=== PATIENT | female | born 1955 | race Two or more races ===

== ENCOUNTER 2016-08-14 14:51 | Inpatient (IN) | payer MEDICAID ==
[~2016-08-14] VITALS: Ht 162.6 cm; Wt 136.1 kg
[2016-08-14] MEDS ORDERED: SEROQUEL200 MG ORAL (15:04)
[2016-08-14 15:29] LABS: BASOPHILS % (AUTO) 0.9 % (0.0-2.0); EOSINOPHILS % (AUTO) 1.2 % (0.0-3.0); LYMPHOCYTES % (AUTO) 30.3 % (20.0-45.0); MEAN CORPUSCULAR HEMOGLOBIN 29.9 PG (27.0-31.0); MEAN CORPUSCULAR HGB CONC 32.1 G/DL (32.0-36.0); MEAN CORPUSCULAR VOLUME 93 FL (80-99); MEAN PLATELET VOLUME 8.1 FL (6.5-10.1); MONOCYTES % (AUTO) 8.6 % (1.0-10.0); PLATELET COUNT 231 K/UL (150-450); RED BLOOD COUNT 4.46 M/UL (4.20-5.40); RED CELL DISTRIBUTION WIDTH 13.6 % (11.6-14.8); WHITE BLOOD COUNT 7.9 K/UL (4.8-10.8)
[2016-08-14] MEDS ORDERED: Meclizine 25mg tab ORAL ONE (15:30)
[2016-08-14 15:39] LABS: ALANINE AMINOTRANSFERASE 17 U/L (3-33); ALBUMIN/GLOBULIN RATIO 1.1 (1.0-2.7); ANION GAP 18 (5-15); ASPARTATE AMINO TRANSFERASE 17 U/L (5-40); CALCIUM 9.6 mg/dL (8.6-10.2); CARBON DIOXIDE 23 mEQ/L (20-30); CHLORIDE 98 mEQ/L (98-107); CREATININE 0.6 mg/dL (0.5-0.9); GLOMERULAR FILTRATION RATE > 60 mL/min (>60); HEMOLYSIS 5; POTASSIUM 4.2 mEQ/L (3.4-4.9); SODIUM 139 mEQ/L (135-145); TROPONIN I < 0.30 ng/mL (<=0.30)
[2016-08-14 15:49] LABS: CKMB < 1.5 ng/mL (< 3.8)
--- NOTE | 2016-08-14 15:50 | Emergency Room Report ---
History of Present Illness General Chief Complaint: Dizziness Source: Patient, EMS Present Illness HPI 61-year-old female presents ED complaining of dizziness x1 day. States dizziness started this morning when she woke up. Feels room spinning sensation , worse with sudden head movement or change of position. She states she was seen at another hospital last week for the same complaint. Was told she had vertigo and was subsequently discharged on medication. Unknown what medication she was prescribed. Denies nausea or vomiting. Denies headache. Denies chest pain. However patient is complaining of shortness of breath, worse with walking and laying flat. Denies fevers chills. Denies cough. No other aggravating or relieving factors. Denies any other associated symptom Allergies: Coded Allergies: No Known Allergies (Unverified , 08/14/16) Patient History Past Medical History: DM Past Surgical History: none Pertinent Family History: none Social History: Denies: alcohol use, drug use, smoking Now: No Immunizations: UTD Reviewed Nursing Documentation: PMH: Agreed, PSxH: Agreed Nursing Documentation-PMH Past Medical History: No History, Except For Hx Diabetes: Yes Review of Systems All Other Systems: negative except mentioned in HPI Physical Exam Vital Signs Date Time Temp Pulse Resp B/P Pulse Ox O2 Delivery O2 Flow Rate FiO2 08/14/16 14:45 98.4 78 16 143/75 98 Room Air Sp02 EP Interpretation: reviewed, normal General Appearance: no apparent distress, alert, GCS 15, non-toxic, obese Head: normocephalic, atraumatic Eyes: bilateral eye PERRL, bilateral eye normal inspection ENT: hearing grossly normal, normal pharynx, no angioedema, normal voice Neck: full range of motion, supple/symm/no masses Respiratory: chest non-tender, lungs clear, normal breath sounds, speaking full sentences Cardiovascular #1: regular rate, rhythm, no edema Cardiovascular #2: 2+ carotid (R), 2+ carotid (L), 2+ radial (R), 2+ radial (L) , 2+ dorsalis pedis (R), 2+ dorsalis pedis (L) Gastrointestinal: normal bowel sounds, non tender, soft, non-distended, no guarding, no rebound Rectal: deferred Genitourinary: normal inspection, no CVA tenderness Musculoskeletal: back normal, gait/station normal, normal range of motion, non- tender Neurologic: alert, oriented x3, responsive, motor strength/tone normal, sensory intact, speech normal Psychiatric: judgement/insight normal, memory normal, mood/affect normal, no suicidal/homicidal ideation Reflexes: 3+ bicep (R), 3+ bicep (L), 3+ tricep (R), 3+ tricep (L), 3+ knee (R) , 3+ knee (L) Skin: normal color, no rash, warm/dry, well hydrated Lymphatic: no adenopathy Medical Decision Making Diagnostic Impression: Primary Impression: Dizziness Additional Impression: Dyspnea Qualified Codes: R06.09 - Other forms of dyspnea ER Course Hospital Course 61-year-old female presents ED complaining of shortness of breath, c/o dizziness Differential diagnoses include: TN/unstable angina, CHF, pneumonia, arrythmia, vertigo Clinical course Patient placed on stretcher. 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 After initial history and physical I ordered labs, EKG, chest x-ray, IVFs labs reviewed- no leukocytosis, hemoglobin/hematocrit stable, electrolytes ok, troponins negative, Chest x-ray- interstitial edema initially given Meclizine without improvement. Given IV Valium patient was seen at [facility] last week and had workup including CT head which was negative. Case discussed with Dr. Chung and he agreed to accept the patient to his service for further care and support I. I feel this is a highly complex case requiring extensive working including EKG/Rhythm strip, Xray/CT/US, Blood/urine lab work, repeat exams while in ED, and administration of strong opiates/narcotics for pain control, admission to hospital or close patient follow up. Diagnosis - dizziness, dyspnea admitted to telemetry in serious condition Labs Test 08/14/16 15:16 08/14/16 15:49 White Blood Count 7.9 K/UL (4.8-10.8) Red Blood Count 4.46 M/UL (4.20-5.40) Hemoglobin 13.3 G/DL (12.0-16.0) Hematocrit 41.5 % (37.0-47.0) Mean Corpuscular Volume 93 FL (80-99) Mean Corpuscular Hemoglobin 29.9 PG (27.0-31.0) Mean Corpuscular Hemoglobin Concent 32.1 G/DL (32.0-36.0) Red Cell Distribution Width 13.6 % (11.6-14.8) Platelet Count 231 K/UL (150-450) Mean Platelet Volume 8.1 FL (6.5-10.1) Neutrophils (%) (Auto) 59.0 % (45.0-75.0) Lymphocytes (%) (Auto) 30.3 % (20.0-45.0) Monocytes (%) (Auto) 8.6 % (1.0-10.0) Eosinophils (%) (Auto) 1.2 % (0.0-3.0) Basophils (%) (Auto) 0.9 % (0.0-2.0) Sodium Level 139 mEQ/L (135-145) Potassium Level 4.2 mEQ/L (3.4-4.9) Chloride Level 98 mEQ/L (98-107) Carbon Dioxide Level 23 mEQ/L (20-30) Anion Gap 18 (5-15) Blood Urea Nitrogen 20 mg/dL (7-23) Creatinine 0.6 mg/dL (0.5-0.9) Estimat Glomerular Filtration Rate > 60 mL/min (>60) Glucose Level 154 mg/dL (74-106) Calcium Level 9.6 mg/dL (8.6-10.2) Total Bilirubin 0.3 mg/dL (0.0-1.2) Aspartate Amino Transf (AST/SGOT) 17 U/L (5-40) Alanine Aminotransferase (ALT/SGPT) 17 U/L (3-33) Alkaline Phosphatase 73 U/L (35-104) Total Creatine Kinase 37 U/L (26-140) Creatine Kinase MB < 1.5 ng/mL (< 3.8) Creatine Kinase MB Relative Index Troponin I < 0.30 ng/mL (<=0.30) Pro-B-Type Natriuretic Peptide 44 pg/mL (0-125) Total Protein 8.0 g/dL (6.6-8.7) Albumin 4.2 g/dL (3.5-5.2) Globulin 3.8 g/dL Albumin/Globulin Ratio 1.1 (1.0-2.7) Urine Color Pale yellow Urine Appearance Clear Urine pH 8 (4.5-8.0) Urine Specific [place] 1.010 (1.005-1.035) Urine Protein Negative (NEGATIVE) Urine Glucose (UA) Negative (NEGATIVE) Urine Ketones Negative (NEGATIVE) Urine Occult Blood Negative (NEGATIVE) Urine Nitrite Negative (NEGATIVE) Urine Bilirubin Negative (NEGATIVE) Urine Urobilinogen Normal MG/DL (0.0-1.0) Urine Leukocyte Esterase Negative (NEGATIVE) EKG Diagnostic Results Rate: normal Rhythm: NSR ST Segments: no acute changes ASA given to the pt in ED: No Rhythm Strip Diag. Results EP Interpretation: yes Rhythm: NSR, no PVC's, no ectopy Chest X-Ray Diagnostic Results EP Interpretation: No Findings: no pneumothorax, no acute cardiopulmonary disease, other - interstitial edema Number of Views: 1 Last Vital Signs Date Time Temp Pulse Resp B/P Pulse Ox O2 Delivery O2 Flow Rate FiO2 08/14/16 14:45 98.4 78 16 143/75 98 Room Air Status: improved Disposition: ADMITTED INPATIENT Condition: Serious Referrals: NOT CHOSEN LEONORA/,REFERRING (PCP) CALE WILLAMS M.D. Aug 14, 2016 15:50
[2016-08-14 16:08] LABS: APPEARANCE,URINE CLEAR; KETONES,URINE NEGATIVE (NEGATIVE); LEUKOCYTE ESTERASE ,URINE NEGATIVE (NEGATIVE); NITRITE,URINE NEGATIVE (NEGATIVE); PH,URINE 8 (4.5-8.0); PROTEIN,URINE NEGATIVE (NEGATIVE); UROBILINOGEN,URINE NORMAL MG/DL (0.0-1.0)
[2016-08-14 16:21] VITALS: BP 161/95
--- NOTE | 2016-08-14 16:28 | Diagnostic Imaging Report ---
Indication: Chest Pain Comparison: None A single view chest radiograph was obtained. Findings: The heart is enlarged. Interstitial markings are prominent as is pulmonary vascularity. Bones are unremarkable. Impression: Suspected interstitial edema.
[2016-08-14] MEDS ORDERED: Diazepam 10mg/2ml Inj IV ONE (16:45)
[2016-08-14] MEDS ORDERED: Mylanta II UD 30ml ORAL PRN (17:30)
[2016-08-14] MEDS ORDERED: Nitroglycerin Subl 0.4mg tab (Bottle Of 25) SL PRN (17:30)
[2016-08-14] MEDS ORDERED: LORazepam Inj 2mg/ml 1ml IV PRN (17:30)
[2016-08-14] MEDS ORDERED: Miralax 17gm pkt ORAL PRN (17:30)
[2016-08-14] MEDS ORDERED: DuoNeb 0.5-3(2.5)mg/3ml neb HHN PRN (17:30)
[2016-08-14 19:19] VITALS: BP 163/65
[2016-08-14 20:14] VITALS: BP 148/92
[2016-08-14] MEDS ORDERED: GLIMEPIRIDE4 MG ORAL (20:56)
[2016-08-14] MEDS ORDERED: ACTOS45 MG ORAL (20:56)
[2016-08-14] MEDS ORDERED: QUEtiapine 200mg tab ORAL SCH (21:00)
[2016-08-14] MEDS: Heparin 5000 units/ml inj SUBQ SCH (21:30)
[2016-08-14] MEDS: NovoLOG Insulin Flexpen SUBQ SCH (22:47)
[2016-08-15] VITALS (7 sets, daily range): BP systolic 114–160; BP diastolic 41–63
[2016-08-15] MEDS: Morphine Sulfate 2mg/ml Inj IVP PRN ×2 (01:55→06:02)
[2016-08-15] MEDS: NovoLOG Insulin Flexpen SUBQ SCH ×4 (06:05→20:19)
[2016-08-15] MEDS: Heparin 5000 units/ml inj SUBQ SCH ×2 (08:54→20:16)
--- NOTE | 2016-08-15 11:28 | History and Physical ---
History of Present Illness General Date patient seen: Aug 15, 2016 Time patient seen: 11:00 Reason for Hospitalization: Dizziness Present Illness HPI 61-year-old female with PMH of HTN,diabetes, arthritis , schizophrenia presented to ED complaining of dizziness x1 day. Dizziness started that morning when she woke up. [place] room spinning around her dizziness worse with sudden head movement or change of position. She stated that she was seen at another hospital last week for the same complaint. Was told she had vertigo and was subsequently discharged on medication. Unknown what medication she was prescribed. Denied nausea or vomiting. Denied headache. Denied chest pain. However complained of shortness of breath, worse with walking and laying flat. Denied fevers chills. Denied cough. Denied ringing in ears Denied change in hearing Denied recent infection in ED laboratory workup - no leukocytosis, hemoglobin/hematocrit stable, electrolytes stable, troponin negative, Chest x-ray- interstitial edema, cardiomegaly initially given Meclizine without improvement. subsequently was given IV Valium patient was seen at [facility] last week and had workup including CT head which was negative. patient was admitted for further management Allergies: Coded Allergies: No Known Allergies (Unverified , 08/14/16) Medication History Scheduled Glimepiride* (Glimepiride*), 4 MG ORAL DAILY, (Reported) Pioglitazone Hcl* (Actos*), 45 MG ORAL DAILY, (Reported) Quetiapine Fumarate* (Seroquel*), 200 MG ORAL QHS, (Reported) Patient History History Provided By: Patient, Medical Record Healthcare decision maker N Resuscitation status Full Code Advanced Directive on File No Review of Systems Constitutional: Reports: weakness Eye: Reports: no symptoms ENT: Reports: no symptoms Respiratory: Reports: see HPI Cardiovascular: Reports: other - hx of HTN Gastrointestinal: Reports: no symptoms Genitourinary: Reports: no symptoms Musculoskeletal: Reports: other - arthritis Psychiatric: Reports: other - schizophrenia Neurological: Reports: see HPI Endocrine: Reports: other - DM Hematologic/Lymphatic: Reports: no symptoms Physical Exam General Appearance: no apparent distress, alert, morbidly obese Lines, tubes and drains: peripheral HEENT: normocephalic, atraumatic, anicteric, mucous membranes moist Neck: supple Respiratory/Chest: lungs clear, no respiratory distress, no accessory muscle use Cardiovascular/Chest: normal rate - distant heart sounds , regular rhythm, other - tarce edema BLE Abdomen: normal bowel sounds, non tender, soft - obese Extremities: non-tender, normal capillary refill Neurologic: alert, responsive Musculoskeletal: normal muscle bulk Last 24 Hour Vital Signs Date Time Temp Pulse Resp B/P Pulse Ox O2 Delivery O2 Flow Rate FiO2 08/15/16 08:10 102 18 Nasal Cannula 2.0 08/15/16 07:45 97.1 85 18 118/52 98 Nasal Cannula 2.0 08/15/16 04:00 93 08/15/16 04:00 97.0 105 20 115/59 94 Nasal Cannula 2.0 08/15/16 00:00 81 08/15/16 00:00 97.5 82 20 118/47 93 Room Air 08/14/16 20:36 72 08/14/16 20:14 97.7 78 20 148/92 95 Room Air 08/14/16 19:23 98.4 89 20 163/65 99 Room Air 08/14/16 19:19 89 20 163/65 99 Room Air 08/14/16 16:21 75 20 161/95 100 Room Air 08/14/16 14:45 98.4 78 16 143/75 98 Room Air Intake and Output 08/14/16 08/15/16 19:00 07:00 Intake Total 1000 ml Output Total 150 ml Balance 1000 ml -150 ml Intake Oral 0 ml IV Total 1000 ml Output Urine Total 150 ml # Voids 2 # Bowel Movements 1 Laboratory Tests Test 08/14/16 15:16 08/14/16 15:49 White Blood Count 7.9 K/UL (4.8-10.8) Red Blood Count 4.46 M/UL (4.20-5.40) Hemoglobin 13.3 G/DL (12.0-16.0) Hematocrit 41.5 % (37.0-47.0) Mean Corpuscular Volume 93 FL (80-99) Mean Corpuscular Hemoglobin 29.9 PG (27.0-31.0) Mean Corpuscular Hemoglobin Concent 32.1 G/DL (32.0-36.0) Red Cell Distribution Width 13.6 % (11.6-14.8) Platelet Count 231 K/UL (150-450) Mean Platelet Volume 8.1 FL (6.5-10.1) Neutrophils (%) (Auto) 59.0 % (45.0-75.0) Lymphocytes (%) (Auto) 30.3 % (20.0-45.0) Monocytes (%) (Auto) 8.6 % (1.0-10.0) Eosinophils (%) (Auto) 1.2 % (0.0-3.0) Basophils (%) (Auto) 0.9 % (0.0-2.0) Sodium Level 139 mEQ/L (135-145) Potassium Level 4.2 mEQ/L (3.4-4.9) Chloride Level 98 mEQ/L (98-107) Carbon Dioxide Level 23 mEQ/L (20-30) Anion Gap 18 (5-15) H Blood Urea Nitrogen 20 mg/dL (7-23) Creatinine 0.6 mg/dL (0.5-0.9) Estimat Glomerular Filtration Rate > 60 mL/min (>60) Glucose Level 154 mg/dL (74-106) H Calcium Level 9.6 mg/dL (8.6-10.2) Total Bilirubin 0.3 mg/dL (0.0-1.2) Aspartate Amino Transf (AST/SGOT) 17 U/L (5-40) Alanine Aminotransferase (ALT/SGPT) 17 U/L (3-33) Alkaline Phosphatase 73 U/L (35-104) Total Creatine Kinase 37 U/L (26-140) Creatine Kinase MB < 1.5 ng/mL (< 3.8) Creatine Kinase MB Relative Index Troponin I < 0.30 ng/mL (<=0.30) Pro-B-Type Natriuretic Peptide 44 pg/mL (0-125) Total Protein 8.0 g/dL (6.6-8.7) Albumin 4.2 g/dL (3.5-5.2) Globulin 3.8 g/dL Albumin/Globulin Ratio 1.1 (1.0-2.7) Urine Color Pale yellow Urine Appearance Clear Urine pH 8 (4.5-8.0) Urine Specific [place] 1.010 (1.005-1.035) Urine Protein Negative (NEGATIVE) Urine Glucose (UA) Negative (NEGATIVE) Urine Ketones Negative (NEGATIVE) Urine Occult Blood Negative (NEGATIVE) Urine Nitrite Negative (NEGATIVE) Urine Bilirubin Negative (NEGATIVE) Urine Urobilinogen Normal MG/DL (0.0-1.0) Urine Leukocyte Esterase Negative (NEGATIVE) Height (Feet): 5 Height (Inches): 4.00 Weight (Pounds): 300 Medications Current Medications Medications (Trade) Dose Ordered Sig/Ceferino Route PRN Reason Start Time Stop Time Status Last Admin Dose Admin Acetaminophen (Tylenol) 650 mg Q4H PRN ORAL fever 08/14/16 17:30 09/13/16 17:29 08/14/16 21:29 Al Hydroxide/Mg Hydroxide (Mylanta II) 30 ml Q6H PRN ORAL dyspepsia 08/14/16 17:30 09/13/16 17:29 Albuterol/ Ipratropium (DuoNeb 0.5-3(2.5)mg/3ml) 3 ml Q4H PRN HHN Shortness of Breath 08/14/16 17:30 08/19/16 17:29 Clonidine HCl (Catapres) 0.1 mg Q4H PRN ORAL For High Blood Pressure 08/14/16 17:30 09/13/16 17:29 Dextrose (Dextrose 50%) STAT PRN IV Hypoglycemia 08/14/16 17:30 09/13/16 17:29 Heparin Sodium (Porcine) (Heparin 5000 units/ml) 5,000 units EVERY 12 HOURS SUBQ 08/14/16 21:00 09/13/16 20:59 08/15/16 08:54 Insulin Aspart (NovoLOG) BEFORE MEALS AND HS SUBQ 08/14/16 23:00 09/13/16 22:59 08/15/16 06:05 Lorazepam (Ativan 2mg/ml 1ml) 0.5 mg Q4H PRN IV For Anxiety 08/14/16 17:30 08/21/16 17:29 Morphine Sulfate (Morphine Sulfate) 1 mg Q4H PRN IVP For Pain 7-10 08/14/16 17:30 08/21/16 17:29 08/15/16 06:02 Nitroglycerin (Ntg) 0.4 mg Q5M X 3 DOSES PRN SL Prn Chest Pain 08/14/16 17:30 09/13/16 17:29 Ondansetron HCl (Zofran) 4 mg Q6H PRN IVP Nausea & Vomiting 08/14/16 17:30 09/13/16 17:29 08/15/16 08:48 Polyethylene Glycol (Miralax) 17 gm HSPRN PRN ORAL Constipation 08/14/16 17:30 09/13/16 17:29 Quetiapine Fumarate (SEROquel) 200 mg QHS ORAL 08/14/16 21:00 09/13/16 20:59 08/14/16 21:29 Temazepam (Restoril) 15 mg HSPRN PRN ORAL Insomnia 08/14/16 17:30 08/21/16 17:29 Assessment/Plan Assessment/Plan ASSESSMENT dizziness possible BPV vs labyrinthitis dyspnea HTN DM schizophrenia PLAN OF CARE tele to rule out acute causes of dizziness such as cardiac or neuro O2 HHN prn CXR with evidence of CM and mild interstitial edema Venous Duplex BLE troponin negative, no evidence of arrhythmia on tele ECHO cardio eval Carotid Duplex orthostatic VS neuro eval recent CT head in [facility] negative UA and CX negative for evidence of infection likely BPV, patient was unable to participate in Hallpike maneuver meclizine prn PT/OT DVT prophylaxis continue Seroquel may consider psych eval case discussed and evaluated by supervising physician Master Clifford)Chelsie NP Aug 15, 2016 11:28
[2016-08-15] MEDS ORDERED: Meclizine 25mg tab ORAL PRN (13:00)
--- NOTE | 2016-08-15 15:39 | Neurology Progress Note ---
Objective Physical Exam Last Vital Signs Date Time Temp Pulse Resp B/P Pulse Ox O2 Delivery O2 Flow Rate FiO2 08/15/16 15:19 97.5 74 18 114/41 97 Nasal Cannula 2.0 Laboratory Tests Test 08/14/16 15:49 Urine Color Pale yellow Urine Appearance Clear Urine pH 8 (4.5-8.0) Urine Specific [place] 1.010 (1.005-1.035) Urine Protein Negative (NEGATIVE) Urine Glucose (UA) Negative (NEGATIVE) Urine Ketones Negative (NEGATIVE) Urine Occult Blood Negative (NEGATIVE) Urine Nitrite Negative (NEGATIVE) Urine Bilirubin Negative (NEGATIVE) Urine Urobilinogen Normal MG/DL (0.0-1.0) Urine Leukocyte Esterase Negative (NEGATIVE) Impression/Recommendations Recommendations #[id number] VIDAL SNYDER Aug 15, 2016 15:39
[2016-08-15] MEDS: Meclizine 25mg tab ORAL SCH (20:17)
[2016-08-16] VITALS: BP 115/53
--- NOTE | 2016-08-16 01:15 | Consultation ---
DATE OF CONSULTATION: 08/15/2016 NEUROLOGICAL CONSULTATION: CONSULTING PHYSICIAN: Gerard Brown M.D. REQUESTING PHYSICIAN: Oanh Chung M.D. HISTORY OF PRESENT ILLNESS: This is a 61 years old female, seen in neurological consultation to evaluate the recent onset of positional vertigo. The patient informed me that about a month ago, she started to have intermittent episodes of vertigo, transient. She noticed that when she is in supine and moving head backwards, or at times after having meals. She has a recent hospitalization. No diagnosis was established. She was readmitted at this time for episodes of vertigo for full day. She reported that vertigo started since she woke up in the morning. She described having spinning sensation, worsened with sudden head movement or changing body position. She denies any associated symptomatology. Following current admission, vital signs remained stable. She was afebrile. Her diagnostic studies included laboratory work with normal CBC, chemistry panel normal except blood sugar 154, anion gap of 18, normal urinalysis, and her chest x-ray suspected interstitial edema. The patient's treatment on admission included quetiapine 200 mg at bedtime for severe insomnia. She is on Actos and glimepiride. PAST MEDICAL HISTORY: The patient has a history of morbid obesity, degenerative joint disease, and history of what appears sleep apnea, hypertension, and chronic psychiatric disorder. ALLERGIES: None reported. SOCIAL HISTORY: Denies alcohol or drug abuse. Nonsmoker. She is . REVIEW OF SYMPTOMS: Shortness of breath on exertion. Episodes of positional vertigo. Denies visual or hearing abnormalities. Heavy snoring at nighttime. Difficulty ambulation, using walker. PHYSICAL EXAMINATION: GENERAL: Morbidly obese female, not in acute distress, sitting in a chair. VITAL SIGNS: Her vital signs are now stable. She is afebrile with temperature 97.5 degrees and blood pressure 114/41. HEENT: Head, normocephalic. No evidence of trauma. Eyes, ears, and throat are clear. NECK: Supple. No meningeal signs. MUSCULOSKELETAL: Arthritic changes, painful both knees. Peripheral pulses 1+ and symmetric. PSYCHIATRIC: Mental status, the patient is alert and oriented x3. Her speech is fluent. Language is intact. Speaks predominantly Japanese. CRANIAL NERVES II: Pupils, both responding to light and accommodation. Extraocular movement intact. No nystagmus. CRANIAL NERVES V: Normal corneal responses. CRANIAL NERVES VII: No facial asymmetry. CRANIAL NERVES VIII: Normal hearing. CRANIAL NERVES IX THROUGH XII: Within normal limits. MOTOR EXAMINATION: Normal muscle tone. Strength is 5/5. Able to lift arms and legs against gravity. Deep tendon reflexes 1+ and symmetric with downgoing toes on both sides. Sensory exam, normal to pinprick and light touch. Gait, not tested but reported able to ambulate with the use of walker. Deep tendon reflexes unobtainable. Biceps, triceps, brachioradialis knee and ankle jerks, plantar responses flexor. SENSORY EXAMINATION: Withdrawing to pin stimulation, both upper and lower extremities. Gait not tested, but reported able to ambulate with the use of walker. IMPRESSION: 1. New onset of intermittent what appears to be positional vertigo with no associated symptomatology. 2. Morbid obesity. 3. Sleep apnea. 4. Degenerative joint disease. 5. Diabetes type 2. DISCUSSION: The patient has no identifiable neurological deficit, but her description follows the pattern of positional vertigo. CT scan of the brain was obtained only recently and was negative. Carotid Duplex pending. The patient will need a sleep apnea test, polysomnogram, also consider reducing Seroquel, down to 25 mg at bedtime, if necessary psychiatry assessment will be requested. The patient maintained on Antivert 25 mg t.i.d. in the following week or two. If symptoms persist, may need outpatient ENT assessment for electronystagmogram. Thank you for allowing me to see this interesting patient in neurological consultation. Gerard Brown M.D. DR: Shan JOB#: [id number] CC:
[2016-08-16] MEDS: Meclizine 25mg tab ORAL SCH ×4 (01:59→20:12)
[2016-08-16 04:00] VITALS: BP 147/63
[2016-08-16] MEDS: NovoLOG Insulin Flexpen SUBQ SCH ×4 (06:18→20:22)
[2016-08-16 07:38] VITALS: BP 131/55
[2016-08-16] MEDS: Heparin 5000 units/ml inj SUBQ SCH ×2 (08:10→20:22)
[2016-08-16] MEDS ORDERED: Bisacodyl EC 5mg tab ORAL ONE (09:45)
[2016-08-16 11:17] VITALS: BP 128/54
--- NOTE | 2016-08-16 11:38 | Pulmonology Progress Note ---
Assessment/Plan Assessment/Plan ASSESSMENT vertigo likely BPV vs labyrinthitis dyspnea HTN DM schizophrenia likely WILL depression bilateral calf pain PLAN OF CARE tele to rule out acute causes of dizziness such as cardiac or neuro O2 HHN prn CXR with evidence of CM and mild interstitial edema Venous Duplex BLE troponin negative, no evidence of arrhythmia on tele ECHO with preserved EF cardio eval Carotid Duplex repeat if agreed orthostatic VS no orthostatic Venous Duplex BLE stat neuro eval noted and appreciated vertigo likely positional as per neuro recommended Meclizine tid x 1-2 wks may need outpatient ENT assessment for electronystagmogram. recent CT head in [facility] negative UA and CX negative for evidence of infection likely BPV, patient was unable to participate in Hallpike maneuver meclizine prn PT/OT DVT prophylaxis continue Seroquel psych eval for evaluation of depression outpatient sleep study case discussed and evaluated by supervising physician Subjective Allergies: Coded Allergies: No Known Allergies (Unverified , 08/14/16) Subjective declined Carotid Duplex yesterday ( unable to finish) less dizziness, still some headache sitting in the chair c/o bilateral posterior calf pain, no SOB Objective Last 24 Hour Vital Signs Date Time Temp Pulse Resp B/P Pulse Ox O2 Delivery O2 Flow Rate FiO2 08/16/16 11:17 96.8 66 18 128/54 99 Nasal Cannula 2.0 08/16/16 07:45 63 08/16/16 07:38 97.0 64 18 131/55 99 Nasal Cannula 2.0 08/16/16 04:00 81 08/16/16 04:00 97.2 86 20 147/63 97 Nasal Cannula 2.0 08/16/16 00:00 73 08/16/16 00:00 96.8 75 20 115/53 97 Nasal Cannula 2.0 08/15/16 20:00 70 08/15/16 20:00 96.8 53 16 136/53 97 Nasal Cannula 2.0 08/15/16 19:07 98 18 Nasal Cannula 2.0 08/15/16 15:45 67 08/15/16 15:19 97.5 74 18 114/41 97 Nasal Cannula 2.0 08/15/16 15:00 87 08/15/16 14:55 67 08/15/16 14:50 72 08/15/16 13:28 83 125/48 08/15/16 12:03 69 6/3/17 11:58 160/63 08/15/16 11:53 08/15/16 11:52 08/15/16 11:31 96.8 84 18 160/63 99 Nasal Cannula 2.0 Intake and Output 08/15/16 08/16/16 19:00 07:00 Intake Total 720 ml 120 ml Output Total 260 ml Balance 460 ml 120 ml Intake Oral 720 ml 120 ml Output Urine Total 260 ml # Voids 101 2 Objective General Appearance: no apparent distress, alert, morbidly obese Lines, tubes and drains: peripheral HEENT: normocephalic, atraumatic, anicteric, mucous membranes moist Neck: supple Respiratory/Chest: lungs clear, no respiratory distress, no accessory muscle use Cardiovascular/Chest: normal rate, distant heart sounds , regular rhythm, trace edema BLE Abdomen: normal bowel sounds, non tender, soft , obese Extremities: non-tender, normal capillary refill Neurologic: alert, responsive Musculoskeletal: normal muscle bulk Current Medications Medications (Trade) Dose Ordered Sig/Ceferino Route PRN Reason Start Time Stop Time Status Last Admin Dose Admin Acetaminophen (Tylenol) 650 mg Q4H PRN ORAL fever 08/14/16 17:30 09/13/16 17:29 08/16/16 04:48 Al Hydroxide/Mg Hydroxide (Mylanta II) 30 ml Q6H PRN ORAL dyspepsia 08/14/16 17:30 09/13/16 17:29 Albuterol/ Ipratropium (DuoNeb 0.5-3(2.5)mg/3ml) 3 ml Q4H PRN HHN Shortness of Breath 08/14/16 17:30 08/19/16 17:29 Clonidine HCl (Catapres) 0.1 mg Q4H PRN ORAL For High Blood Pressure 08/14/16 17:30 09/13/16 17:29 08/15/16 11:58 Dextrose (Dextrose 50%) STAT PRN IV Hypoglycemia 08/14/16 17:30 09/13/16 17:29 Heparin Sodium (Porcine) (Heparin 5000 units/ml) 5,000 units EVERY 12 HOURS SUBQ 08/14/16 21:00 09/13/16 20:59 08/15/16 20:16 Insulin Aspart (NovoLOG) BEFORE MEALS AND HS SUBQ 08/14/16 23:00 7/2/17 22:59 08/16/16 06:18 Lorazepam (Ativan 2mg/ml 1ml) 0.5 mg Q4H PRN IV For Anxiety 08/14/16 17:30 08/21/16 17:29 Meclizine HCl (Antivert) 25 mg Q6H ORAL 08/15/16 20:00 09/14/16 19:59 08/16/16 08:08 Morphine Sulfate (Morphine Sulfate) 1 mg Q4H PRN IVP For Pain 7-10 08/14/16 17:30 08/21/16 17:29 08/15/16 06:02 Nitroglycerin (Ntg) 0.4 mg Q5M X 3 DOSES PRN SL Prn Chest Pain 08/14/16 17:30 09/13/16 17:29 Ondansetron HCl (Zofran) 4 mg Q6H PRN IVP Nausea & Vomiting 08/14/16 17:30 09/13/16 17:29 08/15/16 16:48 Polyethylene Glycol (Miralax) 17 gm HSPRN PRN ORAL Constipation 08/14/16 17:30 09/13/16 17:29 08/15/16 13:22 Quetiapine Fumarate (SEROquel) 100 mg QHS ORAL 08/15/16 21:00 09/14/16 20:59 08/15/16 20:17 Temazepam (Restoril) 15 mg HSPRN PRN ORAL Insomnia 08/14/16 17:30 08/21/16 17:29 Master ChambersChelsie cantu NP Aug 16, 2016 11:38
[2016-08-16 15:21] VITALS: BP 124/49
[2016-08-16 20:00] VITALS: BP 131/65
[2016-08-17] VITALS: BP_SYST 117; BP_SYST 169; BP_DIAS 30; BP_DIAS 45
[2016-08-17] MEDS: Meclizine 25mg tab ORAL SCH ×4 (01:56→20:12)
[2016-08-17 04:00] VITALS: BP 129/38
[2016-08-17] MEDS: NovoLOG Insulin Flexpen SUBQ SCH ×4 (05:53→20:45)
--- NOTE | 2016-08-17 07:06 | Cardiology Report ---
APPROVED REPORT EXAM: Two-dimensional and M-mode echocardiogram with Doppler and color Doppler. INDICATION Left Ventricular Function M-Mode DIMENSIONS IVSd1.7 (0.7-1.1cm)Left Atrium (MM)4.0 (1.6-4.0cm) LVDd5.1 (3.5-5.6cm)Aortic Root2.3 (2.0-3.7cm) PWd1.3 (0.7-1.1cm)Aortic Cusp Exc.1.5 (1.5-2.0cm) LVDs3.6 (2.5-4.0cm) PWs2.1 cm Technically difficult study due to poor acoustic windowsn and patient body habitus. Study quality precludes accurate assessment of regional wall motion. Normal left ventricular chamber size, systolic function and wall motion. Left ventricular ejection fraction estimated to be 55 %. Mild left ventricular hypertrophy. No evidence of pericardial fat or effusion. All other cardiac chamber sizes are within normal limits. Mild focal aortic valve sclerosis with adequate cusp excursion. Mildly thickened mitral valve leaflets with normal excursion. Mild mitral annulus and aortic root calcification. Pulmonic valve not well visualized. Normal tricuspid valve structure. IVC dilated at 1.9 cm with physiologic collapse. A color flow and spectral Doppler study was performed and revealed: No aortic regurgitation. Mild mitral regurgitation. Mitral diastolic velocities suggest reduced left ventricular relaxation (Grade I). Mild tricuspid regurgitation. Tricuspid systolic velocities suggests peak right ventricular systolic pressure of 17 mmHg No pulmonic regurgitation present.
[2016-08-17 08:00] VITALS: BP 144/65
[2016-08-17 08:05] LABS: BASOPHILS % (AUTO) 1.5 % (0.0-2.0); EOSINOPHILS % (AUTO) 2.5 % (0.0-3.0); LYMPHOCYTES % (AUTO) 30.7 % (20.0-45.0); MEAN CORPUSCULAR HEMOGLOBIN 31.5 PG (27.0-31.0); MEAN CORPUSCULAR VOLUME 96 FL (80-99); MEAN PLATELET VOLUME 8.3 FL (6.5-10.1); MONOCYTES % (AUTO) 9.9 % (1.0-10.0); NEUTROPHILS % (AUTO) 55.5 % (45.0-75.0); PLATELET COUNT 169 K/UL (150-450); RED BLOOD COUNT 3.88 M/UL (4.20-5.40); RED CELL DISTRIBUTION WIDTH 14.1 % (11.6-14.8); WHITE BLOOD COUNT 6.2 K/UL (4.8-10.8)
[2016-08-17 08:20] LABS: ANION GAP 14 (5-15); CALCIUM 9.3 mg/dL (8.6-10.2); CARBON DIOXIDE 24 mEQ/L (20-30); CHLORIDE 103 mEQ/L (98-107); CREATININE 0.6 mg/dL (0.5-0.9); GLOMERULAR FILTRATION RATE > 60 mL/min (>60); HEMOLYSIS 9; POTASSIUM 4.3 mEQ/L (3.4-4.9); SODIUM 141 mEQ/L (135-145)
[2016-08-17] MEDS: Heparin 5000 units/ml inj SUBQ SCH ×2 (09:13→20:47)
[2016-08-17 12:00] VITALS: BP 147/58
--- NOTE | 2016-08-17 12:40 | Pulmonology Progress Note ---
Assessment/Plan Problems: (1) Dizziness (2) Pulmonary edema (3) Dyspnea (4) Morbid obesity Assessment/Plan neuro evaluation pt/ot lasix ID evaluation. Pt claims she has parasites Subjective ROS Limited/Unobtainable: No Constitutional: Reports: no symptoms HEENT: Repors: no symptoms Respiratory: Reports: no symptoms Allergies: Coded Allergies: No Known Allergies (Unverified , 08/14/16) Objective Last 24 Hour Vital Signs Date Time Temp Pulse Resp B/P Pulse Ox O2 Delivery O2 Flow Rate FiO2 08/17/16 08:47 Nasal Cannula 2.0 28 08/17/16 08:47 98 Nasal Cannula 2.0 28 08/17/16 08:46 74 16 Nasal Cannula 2.0 28 08/17/16 08:00 77 08/17/16 08:00 97.0 74 18 144/65 99 Nasal Cannula 2.0 08/17/16 04:37 76 08/17/16 04:00 97.7 84 20 129/38 99 Nasal Cannula 2.0 08/17/16 04:00 84 97 08/17/16 00:41 74 08/17/16 00:00 97.6 86 20 117/45 99 Nasal Cannula 2.0 08/16/16 20:00 97.6 71 20 131/65 99 Nasal Cannula 2.0 08/16/16 19:57 72 08/16/16 19:10 99 Nasal Cannula 2.0 08/16/16 19:10 Nasal Cannula 2.0 28 08/16/16 19:05 98 16 Nasal Cannula 2.0 08/16/16 15:51 68 08/16/16 15:21 96.3 65 18 124/49 99 Nasal Cannula 2.0 08/16/16 13:12 92 16 Nasal Cannula 2.0 Intake and Output 08/16/16 08/17/16 19:00 07:00 Intake Total 810 ml Output Total 300 ml Balance 510 ml Intake Oral 810 ml Output Urine Total 300 ml # Voids 4 # Bowel Movements 1 General Appearance: WD/WN HEENT: normocephalic, atraumatic Respiratory/Chest: chest wall non-tender, lungs clear Cardiovascular: normal peripheral pulses, regular rhythm Abdomen: normal bowel sounds, soft, non tender Genitourinary: normal external genitalia Skin: no rash Laboratory Tests 08/17/16 07:30: White Blood Count 6.2, Red Blood Count 3.88L, Hemoglobin 12.2, Hematocrit 37.1, Mean Corpuscular Volume 96, Mean Corpuscular Hemoglobin 31.5H, Mean Corpuscular Hemoglobin Concent 33.0, Red Cell Distribution Width 14.1, Platelet Count 169, Mean Platelet Volume 8.3, Neutrophils (%) (Auto) 55.5, Lymphocytes (%) (Auto) 30.7, Monocytes (%) (Auto) 9.9, Eosinophils (%) (Auto) 2.5, Basophils (%) (Auto ) 1.5, Sodium Level 141, Potassium Level 4.3, Chloride Level 103, Carbon Dioxide Level 24, Anion Gap 14, Blood Urea Nitrogen 18, Creatinine 0.6, Estimat Glomerular Filtration Rate > 60, Glucose Level 129H, Calcium Level 9.3 Current Medications Medications (Trade) Dose Ordered Sig/Ceferino Route PRN Reason Start Time Stop Time Status Last Admin Dose Admin Acetaminophen (Tylenol) 650 mg Q4H PRN ORAL fever 08/14/16 17:30 09/13/16 17:29 08/16/16 15:57 Al Hydroxide/Mg Hydroxide (Mylanta II) 30 ml Q6H PRN ORAL dyspepsia 08/14/16 17:30 09/13/16 17:29 Albuterol/ Ipratropium (DuoNeb 0.5-3(2.5)mg/3ml) 3 ml Q4H PRN HHN Shortness of Breath 08/14/16 17:30 08/19/16 17:29 Clonidine HCl (Catapres) 0.1 mg Q4H PRN ORAL For High Blood Pressure 08/14/16 17:30 09/13/16 17:29 08/15/16 11:58 Dextrose (Dextrose 50%) STAT PRN IV Hypoglycemia 08/14/16 17:30 09/13/16 17:29 Heparin Sodium (Porcine) (Heparin 5000 units/ml) 5,000 units EVERY 12 HOURS SUBQ 08/14/16 21:00 09/13/16 20:59 08/17/16 09:13 Insulin Aspart (NovoLOG) BEFORE MEALS AND HS SUBQ 08/14/16 23:00 09/13/16 22:59 08/17/16 11:40 Lorazepam (Ativan 2mg/ml 1ml) 0.5 mg Q4H PRN IV For Anxiety 08/14/16 17:30 08/21/16 17:29 Meclizine HCl (Antivert) 25 mg Q6H ORAL 08/15/16 20:00 09/14/16 19:59 08/17/16 09:10 Morphine Sulfate (Morphine Sulfate) 1 mg Q4H PRN IVP For Pain 7-08/14/16 17:30 08/21/16 17:29 08/15/16 06:02 Nitroglycerin (Ntg) 0.4 mg Q5M X 3 DOSES PRN SL Prn Chest Pain 08/14/16 17:30 09/13/16 17:29 Ondansetron HCl (Zofran) 4 mg Q6H PRN IVP Nausea & Vomiting 08/14/16 17:30 09/13/16 17:29 08/16/16 15:56 Polyethylene Glycol (Miralax) 17 gm HSPRN PRN ORAL Constipation 08/14/16 17:30 09/13/16 17:29 08/15/16 13:22 Quetiapine Fumarate (SEROquel) 100 mg QHS ORAL 08/15/16 21:00 09/14/16 20:59 08/16/16 21:16 Temazepam (Restoril) 15 mg HSPRN PRN ORAL Insomnia 08/14/16 17:30 08/21/16 17:29 SANA CARROLL Aug 17, 2016 12:40
--- NOTE | 2016-08-17 14:09 | Diagnostic Imaging Report ---
APPROVED REPORT CPT Code: 09316 Present Symptoms Lower Extremity Pain: Bilateral Shortness of breath BILATERAL: Imaging reveals a patent deep venous system bilaterally. There is no evidence of thrombus within the femoral, popliteal or tibial segments. The greater saphenous veins are also within normal limits. Doppler indicates normal spontaneous flow within these segments.
[2016-08-17] MEDS ORDERED: Nitroglycerin Subl 0.4mg tab (Bottle Of 25) SL PRN (14:30)
[2016-08-17] MEDS ORDERED: Morphine Sulfate 2mg/ml Inj IVP PRN (15:00)
[2016-08-17] MEDS ORDERED: DuoNeb 0.5-3(2.5)mg/3ml neb HHN PRN (15:00)
[2016-08-17] MEDS ORDERED: LORazepam Inj 2mg/ml 1ml IV PRN (15:00)
[2016-08-17] MEDS ORDERED: Mylanta II UD 30ml ORAL PRN (15:00)
[2016-08-17 16:15] VITALS: BP 138/70
[2016-08-17 20:21] VITALS: BP 146/77
[2016-08-17] MEDS ORDERED: Miralax 17gm pkt ORAL PRN (21:00)
[2016-08-18 00:25] VITALS: BP 142/80
--- NOTE | 2016-08-18 00:31 | Consultation ---
History of Present Illness General Date patient seen: Aug 16, 2016 Chief Complaint: Dizziness Present Illness HPI 61 years old female, seen in neurological consultation to evaluate the recent onset of positional vertigo. the pt is pw depressed mood, anhedonia, hopelessness, decrease energy. the pt has been refusing Doppler. on Wednesday the pt agreed to procedure Allergies: Coded Allergies: No Known Allergies (Unverified , 08/14/16) Medication History Scheduled Glimepiride* (Glimepiride*), 4 MG ORAL DAILY, (Reported) Pioglitazone Hcl* (Actos*), 45 MG ORAL DAILY, (Reported) Quetiapine Fumarate* (Seroquel*), 200 MG ORAL QHS, (Reported) Patient History History Provided By: Patient, Friend, Significant Other, Medical Record Healthcare decision maker N Resuscitation status Full Code Advanced Directive on File No Past Medical/Surgical History Past Medical/Surgical History: (1) Dizziness (2) Morbid obesity (3) Dyspnea (4) Pulmonary edema Review of Systems Psychiatric: Reports: anxiety, depressed feelings, emotional problems, prior hx Physical Exam General Appearance: no apparent distress, alert, obese Neurologic: alert, oriented x 3, responsive, depressed affect Last 24 Hour Vital Signs Date Time Temp Pulse Resp B/P Pulse Ox O2 Delivery O2 Flow Rate FiO2 08/18/16 00:25 97.9 100 19 142/80 96 Nasal Cannula 6.0 08/17/16 23:43 68 20 Nasal Cannula 2.0 08/17/16 20:21 98.1 66 18 146/77 94 Nasal Cannula 6.0 08/17/16 19:30 70 20 Nasal Cannula 2.0 08/17/16 19:30 Nasal Cannula 2.0 28 08/17/16 19:30 98 Nasal Cannula 2.0 28 08/17/16 16:15 97.5 72 20 138/70 99 Nasal Cannula 2.0 08/17/16 12:00 80 08/17/16 12:00 97.5 62 20 147/58 100 Nasal Cannula 2.0 08/17/16 08:47 Nasal Cannula 2.0 28 08/17/16 08:47 98 Nasal Cannula 2.0 28 08/17/16 08:46 74 16 Nasal Cannula 2.0 28 08/17/16 08:00 77 08/17/16 08:00 97.0 74 18 144/65 99 Nasal Cannula 2.0 08/17/16 04:37 76 08/17/16 04:00 97.7 84 20 129/38 99 Nasal Cannula 2.0 08/17/16 04:00 84 97 08/17/16 00:41 74 Intake and Output 08/17/16 08/18/16 19:00 07:00 Intake Total 720 ml Balance 720 ml Intake Oral 720 ml # Voids 6 Laboratory Tests Test 08/17/16 07:30 White Blood Count 6.2 K/UL (4.8-10.8) Red Blood Count 3.88 M/UL (4.20-5.40) L Hemoglobin 12.2 G/DL (12.0-16.0) Hematocrit 37.1 % (37.0-47.0) Mean Corpuscular Volume 96 FL (80-99) Mean Corpuscular Hemoglobin 31.5 PG (27.0-31.0) H Mean Corpuscular Hemoglobin Concent 33.0 G/DL (32.0-36.0) Red Cell Distribution Width 14.1 % (11.6-14.8) Platelet Count 169 K/UL (150-450) Mean Platelet Volume 8.3 FL (6.5-10.1) Neutrophils (%) (Auto) 55.5 % (45.0-75.0) Lymphocytes (%) (Auto) 30.7 % (20.0-45.0) Monocytes (%) (Auto) 9.9 % (1.0-10.0) Eosinophils (%) (Auto) 2.5 % (0.0-3.0) Basophils (%) (Auto) 1.5 % (0.0-2.0) Sodium Level 141 mEQ/L (135-145) Potassium Level 4.3 mEQ/L (3.4-4.9) Chloride Level 103 mEQ/L (98-107) Carbon Dioxide Level 24 mEQ/L (20-30) Anion Gap 14 (5-15) Blood Urea Nitrogen 18 mg/dL (7-23) Creatinine 0.6 mg/dL (0.5-0.9) Estimat Glomerular Filtration Rate > 60 mL/min (>60) Glucose Level 129 mg/dL (74-106) H Calcium Level 9.3 mg/dL (8.6-10.2) Height (Feet): 5 Height (Inches): 4.00 Weight (Pounds): 300 Medications Current Medications Medications (Trade) Dose Ordered Sig/Ceferino Route PRN Reason Start Time Stop Time Status Last Admin Dose Admin Acetaminophen (Tylenol) 650 mg Q4H PRN ORAL T>100.5 08/17/16 15:00 09/16/16 14:59 Al Hydroxide/Mg Hydroxide (Mylanta II) 30 ml Q6H PRN ORAL dyspepsia 08/17/16 15:00 09/16/16 14:59 Albuterol/ Ipratropium (DuoNeb 0.5-3(2.5)mg/3ml) 3 ml Q4H PRN HHN Shortness of Breath 08/17/16 15:00 08/22/16 14:59 Clonidine HCl (Catapres) 0.1 mg Q4H PRN ORAL SBP>160 mmHg 08/17/16 15:00 09/16/16 14:59 Dextrose (Dextrose 50%) STAT PRN IV Hypoglycemia 08/17/16 15:00 09/16/16 14:59 Furosemide (Lasix) 20 mg EVERY 12 HOURS IV 08/17/16 21:00 09/16/16 20:59 08/17/16 20:46 Heparin Sodium (Porcine) (Heparin 5000 units/ml) 5,000 units EVERY 12 HOURS SUBQ 08/17/16 21:00 09/16/16 20:59 08/17/16 20:47 Insulin Aspart (NovoLOG) BEFORE MEALS AND HS SUBQ 08/17/16 16:30 09/16/16 16:29 08/17/16 20:45 Lorazepam (Ativan 2mg/ml 1ml) 0.5 mg Q4H PRN IV For Anxiety 08/17/16 15:00 08/24/16 14:59 08/17/16 18:26 Meclizine HCl (Antivert) 25 mg Q6H ORAL 08/17/16 20:00 09/16/16 19:59 08/17/16 20:12 Morphine Sulfate (Morphine Sulfate) 1 mg Q4H PRN IVP For Pain 7-10 08/17/16 15:00 08/24/16 14:59 Nitroglycerin (Ntg) 0.4 mg Q5M X 3 DOSES PRN SL Prn Chest Pain 08/17/16 14:30 09/16/16 14:29 Ondansetron HCl (Zofran) 4 mg Q6H PRN IVP Nausea & Vomiting 08/17/16 15:00 09/16/16 14:59 Polyethylene Glycol (Miralax) 17 gm HSPRN PRN ORAL Constipation 08/17/16 21:00 09/16/16 20:59 Quetiapine Fumarate (SEROquel) 100 mg QHS ORAL 08/17/16 21:00 09/16/16 20:59 08/17/16 20:44 Temazepam (Restoril) 15 mg HSPRN PRN ORAL Insomnia 08/17/16 21:00 08/24/16 20:59 Assessment/Plan Status: stable Assessment/Plan mdd recurrent mod -lexapro 10mg Myla Coreas M.D. Aug 18, 2016 00:31
[2016-08-18] MEDS: Meclizine 25mg tab ORAL SCH ×3 (02:00→14:38)
[2016-08-18 04:00] VITALS: BP 146/70
[2016-08-18] MEDS: NovoLOG Insulin Flexpen SUBQ SCH ×3 (06:16→17:23)
[2016-08-18 06:26] LABS: BASOPHILS % (AUTO) 0.6 % (0.0-2.0); LYMPHOCYTES % (AUTO) 28.2 % (20.0-45.0); MEAN CORPUSCULAR HEMOGLOBIN 31.2 PG (27.0-31.0); MEAN CORPUSCULAR HGB CONC 32.9 G/DL (32.0-36.0); MEAN CORPUSCULAR VOLUME 95 FL (80-99); MEAN PLATELET VOLUME 8.7 FL (6.5-10.1); MONOCYTES % (AUTO) 11.8 % (1.0-10.0); NEUTROPHILS % (AUTO) 57.4 % (45.0-75.0); PLATELET COUNT 169 K/UL (150-450); RED BLOOD COUNT 3.58 M/UL (4.20-5.40); RED CELL DISTRIBUTION WIDTH 13.5 % (11.6-14.8); WHITE BLOOD COUNT 7.1 K/UL (4.8-10.8)
[2016-08-18 06:53] LABS: ALANINE AMINOTRANSFERASE 18 U/L (3-33); ALBUMIN/GLOBULIN RATIO 1.1 (1.0-2.7); ANION GAP 15 (5-15); ASPARTATE AMINO TRANSFERASE 17 U/L (5-40); CALCIUM 8.8 mg/dL (8.6-10.2); CARBON DIOXIDE 27 mEQ/L (20-30); CHLORIDE 98 mEQ/L (98-107); CREATININE 0.5 mg/dL (0.5-0.9); GLOMERULAR FILTRATION RATE > 60 mL/min (>60); HEMOLYSIS 1; SODIUM 140 mEQ/L (135-145)
[2016-08-18 08:00] VITALS: BP 148/69
[2016-08-18] MEDS: Heparin 5000 units/ml inj SUBQ SCH (08:45)
--- NOTE | 2016-08-18 10:42 | Cardiology Progress Note ---
Assessment/Plan Assessment/Plan dyspnea hs of asthma morbid obesity htn sleep apnea vertigo mild diastolic dysfunction check ekg pro bnp normal has sen neuro already bp controlled check lipids doubt sig chf or dhf [id number] Objective Last 24 Hour Vital Signs Date Time Temp Pulse Resp B/P Pulse Ox O2 Delivery O2 Flow Rate FiO2 08/18/16 08:00 96.6 83 20 148/69 96 Nasal Cannula 2.0 08/18/16 07:40 98 Nasal Cannula 2.0 28 08/18/16 07:40 Nasal Cannula 2.0 28 08/18/16 07:40 93 20 Nasal Cannula 2.0 28 08/18/16 04:00 98.1 75 18 146/70 94 Room Air 08/18/16 00:25 97.9 100 19 142/80 96 Nasal Cannula 6.0 08/17/16 23:43 68 20 Nasal Cannula 2.0 28 08/17/16 20:21 98.1 66 18 146/77 94 Nasal Cannula 6.0 08/17/16 19:30 70 20 Nasal Cannula 2.0 28 08/17/16 19:30 Nasal Cannula 2.0 28 08/17/16 19:30 98 Nasal Cannula 2.0 28 08/17/16 16:15 97.5 72 20 138/70 99 Nasal Cannula 2.0 08/17/16 12:00 80 08/17/16 12:00 97.5 62 20 147/58 100 Nasal Cannula 2.0 Intake and Output 08/17/16 08/18/16 19:00 07:00 Intake Total 720 ml 240 ml Balance 720 ml 240 ml Intake Oral 720 ml 240 ml # Voids 6 4 Laboratory Tests Test 08/18/16 05:10 White Blood Count 7.1 K/UL (4.8-10.8) Red Blood Count 3.58 M/UL (4.20-5.40) L Hemoglobin 11.2 G/DL (12.0-16.0) L Hematocrit 33.9 % (37.0-47.0) L Mean Corpuscular Volume 95 FL (80-99) Mean Corpuscular Hemoglobin 31.2 PG (27.0-31.0) H Mean Corpuscular Hemoglobin Concent 32.9 G/DL (32.0-36.0) Red Cell Distribution Width 13.5 % (11.6-14.8) Platelet Count 169 K/UL (150-450) Mean Platelet Volume 8.7 FL (6.5-10.1) Neutrophils (%) (Auto) 57.4 % (45.0-75.0) Lymphocytes (%) (Auto) 28.2 % (20.0-45.0) Monocytes (%) (Auto) 11.8 % (1.0-10.0) H Eosinophils (%) (Auto) 2.0 % (0.0-3.0) Basophils (%) (Auto) 0.6 % (0.0-2.0) Sodium Level 140 mEQ/L (135-145) Potassium Level 4.0 mEQ/L (3.4-4.9) Chloride Level 98 mEQ/L (98-107) Carbon Dioxide Level 27 mEQ/L (20-30) Anion Gap 15 (5-15) Blood Urea Nitrogen 16 mg/dL (7-23) Creatinine 0.5 mg/dL (0.5-0.9) Estimat Glomerular Filtration Rate > 60 mL/min (>60) Glucose Level 156 mg/dL (74-106) H Calcium Level 8.8 mg/dL (8.6-10.2) Total Bilirubin 0.3 mg/dL (0.0-1.2) Aspartate Amino Transf (AST/SGOT) 17 U/L (5-40) Alanine Aminotransferase (ALT/SGPT) 18 U/L (3-33) Alkaline Phosphatase 64 U/L (35-104) Pro-B-Type Natriuretic Peptide 60 pg/mL (0-125) Total Protein 7.0 g/dL (6.6-8.7) Albumin 3.7 g/dL (3.5-5.2) Globulin 3.3 g/dL Albumin/Globulin Ratio 1.1 (1.0-2.7) JOSE HA 6, 2017 10:42
--- NOTE | 2016-08-18 11:09 | Diagnostic Imaging Report ---
Indication: Dyspnea Comparison: August 14, 2016 A single view chest radiograph was obtained. Findings: Interstitial edema suspected though there maybe slight improvement. The heart is enlarged and unchanged in appearance. Impression: Mild interstitial edema may be present. This appears slightly improved from the prior occasion
--- NOTE | 2016-08-18 11:57 | Consultation ---
Consult Note Consult Note ID DIC # [id number] ОЛЕГ PETTIT M.D. Aug 18, 2016 11:57
[2016-08-18 12:00] VITALS: BP 147/73
[2016-08-18] MEDS ORDERED: SEROQUEL100 MG ORAL (12:35)
[2016-08-18] MEDS ORDERED: MECLIZINE HCL25 MG ORAL (12:35)
[2016-08-18] MEDS ORDERED: FUROSEMIDE20 M1 ORAL (12:35)
[2016-08-18 17:00] VITALS: BP 145/79
--- NOTE | 2016-08-18 18:36 | Pulmonology Progress Note ---
Assessment/Plan Problems: (1) Dizziness (2) Pulmonary edema (3) Dyspnea (4) Morbid obesity Assessment/Plan neuro evaluation appreciated pt/ot lasix dc home with close f/u with primary Subjective ROS Limited/Unobtainable: No Allergies: Coded Allergies: No Known Allergies (Unverified , 08/14/16) Objective Last 24 Hour Vital Signs Date Time Temp Pulse Resp B/P Pulse Ox O2 Delivery O2 Flow Rate FiO2 08/18/16 17:00 97.5 71 20 145/79 94 Room Air 08/18/16 12:00 97.2 82 20 147/73 93 Room Air 08/18/16 08:00 96.6 83 20 148/69 96 Nasal Cannula 2.0 08/18/16 07:40 98 Nasal Cannula 2.0 28 08/18/16 07:40 Nasal Cannula 2.0 28 08/18/16 07:40 93 20 Nasal Cannula 2.0 28 08/18/16 04:00 98.1 75 18 146/70 94 Room Air 08/18/16 00:25 97.9 100 19 142/80 96 Nasal Cannula 6.0 08/17/16 23:43 68 20 Nasal Cannula 2.0 28 08/17/16 20:21 98.1 66 18 146/77 94 Nasal Cannula 6.0 08/17/16 19:30 70 20 Nasal Cannula 2.0 28 08/17/16 19:30 Nasal Cannula 2.0 28 08/17/16 19:30 98 Nasal Cannula 2.0 28 Intake and Output 08/17/16 08/18/16 19:00 07:00 Intake Total 720 ml 240 ml Balance 720 ml 240 ml Intake Oral 720 ml 240 ml # Voids 6 4 Objective General Appearance: WD/WN HEENT: normocephalic, atraumatic Respiratory/Chest: chest wall non-tender, lungs clear Cardiovascular: normal peripheral pulses, normal rate Abdomen: normal bowel sounds, soft, non tender Genitourinary: normal external genitalia Extremities: no cyanosis Skin: no rash 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 Lymphatic: no neck adenopathy Musculoskeletal: normal muscle bulk Laboratory Tests 08/18/16 05:10: White Blood Count 7.1, Red Blood Count 3.58L, Hemoglobin 11.2L, Hematocrit 33.9L , Mean Corpuscular Volume 95, Mean Corpuscular Hemoglobin 31.2H, Mean Corpuscular Hemoglobin Concent 32.9, Red Cell Distribution Width 13.5, Platelet Count 169, Mean Platelet Volume 8.7, Neutrophils (%) (Auto) 57.4, Lymphocytes (% ) (Auto) 28.2, Monocytes (%) (Auto) 11.8H, Eosinophils (%) (Auto) 2.0, Basophils (%) (Auto) 0.6, Sodium Level 140, Potassium Level 4.0, Chloride Level 98, Carbon Dioxide Level 27, Anion Gap 15, Blood Urea Nitrogen 16, Creatinine 0.5, Estimat Glomerular Filtration Rate > 60, Glucose Level 156H, Calcium Level 8.8, Total Bilirubin 0.3, Aspartate Amino Transf (AST/SGOT) 17, Alanine Aminotransferase (ALT/SGPT) 18, Alkaline Phosphatase 64, Pro-B-Type Natriuretic Peptide 60, Total Protein 7.0, Albumin 3.7, Globulin 3.3, Albumin/Globulin Ratio 1.1 SANA CARROLL Aug 18, 2016 18:36
--- NOTE | 2016-08-18 20:30 | Consultation ---
DATE OF CONSULTATION: 08/18/2016 CARDIOLOGY CONSULTATION CONSULTING PHYSICIAN: Vito Mercado M.D. REFERRING PHYSICIAN: Oanh Chung M.D. REASON FOR REFERRAL: Shortness of breath. HISTORY OF PRESENT ILLNESS: This is an elderly female, 61-year-old, who is admitted to the hospital because of increasing shortness of breath over the past four or five days. She did not used to have shortness of breath prior to the past on detailed questioning, she has one pillow usage. There are no PND episodes. There is no palpitations. No pain, pressure, or tightness in her chest. She has had a recent evaluation in [place] and was told she has some kind of infection, but was never treated for that. Nevertheless, she presented to the hospital with constellation of symptoms and shortness of breath and dizziness that she describes on questioning, a spinning sensation and not lightheadedness and no syncopal episode. PAST MEDICAL HISTORY: Positive for high blood pressure and high cholesterol. No history of heart attack. No cancer. No stroke. No hepatitis or tuberculosis. She does have history of asthma. No ulcers. No kidney problems, liver problems, thyroid problems, anemia, or arthritis as well she can tell. ALLERGIES: She is not allergic to any medications. SOCIAL HISTORY: She does not smoke or drink alcoholic beverages. No drugs. She lives by herself. 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 REVIEW OF SYSTEMS: Gastrointestinal: She has had some nausea. No vomiting. No diarrhea. No constipation. No bloody or black stool. Genitourinary System: Some discomfort on urination when she has to push. Pulmonary: Negative. Constitutional: She has not really had any fevers or chills, although she is felt to have cold. Neurologic: She has numbness and tingling sensation in her feet and a spinning sensation as noted above. PHYSICAL EXAMINATION: GENERAL: Shows to be a morbidly obese elderly female, in no respiratory distress. NECK: Supple. No jugular venous distention. She has some end-expiratory wheezes. CARDIAC: Regular rate and rhythm. No heaves, thrills, or gallops noted. ABDOMEN: Abdomen is morbidly obese. Positive bowel sounds. EXTREMITIES: There is 0 to trace edema of the lower extremities. NEUROLOGIC: She is awake, alert, responsive, and in no apparent respiratory distress. LABORATORY VALUES: Her white count is 7.1, hemoglobin of 11.2, and a platelet count of 169,000. Sodium 140, potassium 4.0, chloride 98, bicarbonate 27, BUN of 16, creatinine 0.6, and glucose of 156. Her liver function tests are all normal. ProBNP is only 60, was 44 at the time of her initial evaluation and the troponin was less than 0.3. Her urinalysis is apparently unremarkable. Imaging study showed echocardiogram that shows an ejection fraction of 55%, technically difficult study, however, it was noted that she has normal IVC size and there is no significant valvular regurgitation, mild diastolic relaxation abnormalities. Venous duplex study of the lower extremity shows no evidence of thrombus. A chest x-ray performed in the emergency room shows suspected interstitial edema. I do not see an EKG, although her telemetry data while she was on telemetry looks like it was all sinus rhythm. ASSESSMENT: 1. Dyspnea. 2. Vertigo. 3. Obesity. 4. Probable sleep apnea. 5. Mild diastolic dysfunction. 6. Asthma. PLAN: Dr. Chung, this patient was seen in cardiac consultation. She does have a history of asthma, she endorses that way. The symptoms of shortness of breath may be related to asthma and less likely to be related to diastolic heart failure, although that certainly is a possibility. She has been receiving some diuretics here. She has had some increasing shortness of breath over the past three or four days before coming in to the hospital, but she has not been having any PND or orthopnea. Echocardiogram showed normal left ventricular systolic function. EKG will be ordered. Of note, the natriuretic peptide is normal on two separate occasions, which will likely make heart failure in this patient an unlikely event. Vito Mercado M.D. DR: CELIA JOB#: [id number] CC:
--- NOTE | 2016-08-18 20:45 | Consultation ---
DATE OF CONSULTATION: INFECTIOUS DISEASE CONSULTATION CONSULTING PHYSICIAN: Matt Hoyos M.D REFERRING PHYSICIAN: Oanh Chung M.D. REASON FOR CONSULTATION: History of positive infection. HISTORY OF PRESENT ILLNESS: The patient is a 61-year-old female with multiple medical problems who has been admitted to this medical center for dizziness. The patient has multiple medical problems as listed below. She has been worked up by Cardiology for the symptoms. The patient reportedly has history of positive infection that was tested in stool tests in [place]; however, according to her, she was never given a prescription for that and never been explained what type of positive infection does she have. She does not have diarrhea. She has not seen any in her stool. Infectious Diseases consultation has been requested for further evaluation of the patient. PAST MEDICAL HISTORY: 1. Hypertension. 2. Arthritis. 3. Diabetes. 4. Schizophrenia. FAMILY HISTORY: Not contributing. REVIEW OF SYSTEMS: HEENT: No recent change in vision or hearing. Pulmonary: The patient has history of asthma. Cardiovascular: As mentioned above. Gastrointestinal: No nausea or vomiting. Genitourinary: No dysuria. MEDICATIONS: She is off of antibiotics. SOCIAL HISTORY: The patient lives with the family. PHYSICAL EXAMINATION: VITAL SIGNS: Temperature 96.6, blood pressure 148/69, pulse 86, and respiratory rate 18. HEENT: Mild pale conjunctivae. No icterus. NECK: No lymphadenopathy. CHEST: No crackles. HEART: S1 and S2. ABDOMEN: Soft, obese, and nontender. EXTREMITIES: No cyanosis. NEUROLOGIC: Awake and alert. LABORATORY AND DIAGNOSTIC DATA: White blood cells 7, hemoglobin 11, platelets 189,000, and eosinophils 2%. UA unremarkable. BUN 16 and creatinine 0.9. Liver function tests are unremarkable. Chest x-ray, mild interstitial edema. Echocardiogram, ejection fraction 55%. ASSESSMENT: The patient is a 61-year-old female with multiple medical problems as above who has, 1. History of positive infection (stool) according to the patient. 2. Dizziness. PLAN: 1. We will order stool for ova and parasite x3. 2. Monitor the patient off of antibiotics. 3. We will follow Cardiology recommendations. 4. Based on the patient's clinical course and labs, we will do further recommendation. Thank you, Dr. Chung, for allowing me to participate in the care of this patient. I will follow the patient with you during this hospitalization. Matt Hoyos M.D. DR: PRIYANK JOB#: [id number] CC:
--- NOTE | 2016-08-18 21:15 | Progress Note ---
DATE: 08/18/2016 SUBJECTIVE: The patient is presenting with depressed mood, anhedonia, decreased energy, has not more cooperative and endorses mild cognitive impairment. No suicidal or homicidal ideation. MENTAL STATUS EXAMINATION: Alert and oriented x3. Mood is depressed. Affect is blunted. Congruent mood. Thought process is concrete. Thought content, no suicidal or homicidal ideations. No delusions. No IVH. Cognition is mildly impaired. ASSESSMENT: Major depressive disorder, lacks capacity to medical guevara. PLAN: The patient will be continued on Lexapro and Seroquel. Provided the patient with supportive therapy and reality orientation. Myla Perez M.D. DR: ЕКАТЕРИНА JOB#: [id number] CC:
--- NOTE | 2016-08-19 17:53 | Cardiology Report ---
APPROVED REPORT EKG Measurement Heart [id number] Normal sinus rhythm Normal ECG
--- NOTE | 2016-08-19 19:45 | Discharge Summary ---
Discharge Summary Hospital Course Date of Admission Aug 14, 2016 at 16:10 Date of Discharge Aug 18, 2016 at 17:54 Admitting Diagnosis dizziness. SOB HPI Brit Nolan is a 61 year old female who was admitted on Aug 14, 2016 at 16:10 for Dizziness,Shortness Of Breath Hospital Course [id number] Discharge Discharge Disposition Patient was discharged to Home (01) Discharge Diagnoses: Steff Baldwin NP Aug 19, 2016 19:45
--- NOTE | 2016-08-20 06:00 | Discharge Summary 2 SIG ---
DATE OF ADMISSION: 08/14/2016 DATE OF DISCHARGE: 08/18/2016 CONSULTANTS: 1. Matt Hoyos M.D. 2. Vito Mercado M.D. 3. Myla Perez M.D. 4. Gerard Brown M.D. BRIEF HOSPITAL COURSE: The patient is a 61-year-old female with history of hypertension, diabetes, arthritis, and schizophrenia, presented to ED complaining of dizziness for a day. Dizziness started that morning and felt the room was spinning. The dizziness got worse especially with sudden head movement or change of position and had similar episode prior week, and presented to another hospital where she was told she has vertigo and was subsequently discharged on unknown medications. At ED, laboratory work done showed no leukocytosis. Troponin was negative. Chest x-ray showed interstitial edema with cardiomegaly and was given IV Valium. She was then admitted for further evaluation and was seen by Dr. Brown. CAT scan of the brain was negative. Venous duplex was negative for DVT. Echocardiogram showed ejection fraction of 55% with mild left ventricular hypertrophy, however, the study was technically difficult due to poor acoustic window and body habitus. She was continued on Antivert 25 mg t.i.d. She was seen by Dr. Mercado for evaluation of shortness of breath. Telemetry data showed sinus rhythm and proBNP is only 60. Symptoms of shortness of breath was maybe related to asthma and less likely related to heart failure. Echocardiogram showed normal left ventricular systolic function. Dr. Hoyos was consulted. The patient had a history of infection that was tested when in [place], however, she stated she was never given prescription and never been explained what type of infection. She was ordered stool for ova and parasites, however, no specimen was sent. She was also seen by psychiatrist. The patient with depressed mood, anhedonia, and hopelessness and was diagnosed to have major depressive disorder and was given Lexapro 10 mg every morning and was continued on Seroquel. She underwent physical therapy and occupational therapy and was eventually discharged home. Advised to follow up with primary. FINAL DIAGNOSES: 1. Pulmonary edema. 2. Morbid obesity. 3. Positional vertigo. 4. Sleep apnea. 5. Diabetes type 2. 6. Degenerative joint disease. 7. Major depressive disorder. 8. Hypertension. Oanh Chung M.D. I have been assigned to dictate discharge summary on this account and I was not involved in the patient's management. Steff Baldwin N.P. DR: Reece JOB#: [id number] CC:
== END 2016-08-18 17:54 | disposition home or self-care (01) | DRG 111 ==
LOC: EDBD 14:51 → EMR 15:08 → 2E 16:10 → EDBEDREQ 19:29 → 2E 21:04 → 3E 08-17 14:40
DX: H81.10 Benign paroxysmal vertigo, unspecified ear (principal); J81.1 Chronic pulmonary edema; I10 Essential (primary) hypertension; E11.9 Type 2 diabetes mellitus without complications; F20.9 Schizophrenia, unspecified; M19.90 Unspecified osteoarthritis, unspecified site; F32.9 Major depressive disorder, single episode, unspecified; E66.01 Morbid (severe) obesity due to excess calories; Z68.43 Body mass index [BMI] 50.0-59.9, adult; G47.33 Obstructive sleep apnea (adult) (pediatric)
CPT/HCPCS: 36415; 71010; 80048; 80053; 81003; 82550; 82553; 82962; 83880; 84484; 85025; 93005; 93306; 93970; 94664; 94760; J1815; J2405

== ENCOUNTER 2016-11-16 13:18 | Inpatient (IN) | payer MEDICAID ==
[~2016-11-16] VITALS: Ht 165.1 cm; Wt 139.3 kg
[~2016-11-16 13:18] MED LIST: ACTOS45 MG ORAL; FUROSEMIDE20 M1 ORAL; GLIMEPIRIDE4 MG ORAL; MECLIZINE HCL25 MG ORAL; SEROQUEL100 MG ORAL; SEROQUEL200 MG ORAL
[2016-11-16] MEDS ORDERED: LEXAPRO20 MG ORAL (13:38)
[2016-11-16] MEDS ORDERED: BUSPIRONE HCL5 M2 ORAL (13:38)
[2016-11-16] MEDS ORDERED: BENZTROPINE MESY2 MG ORAL (13:38)
[2016-11-16 13:39] VITALS: BP 175/73
[2016-11-16] MEDS ORDERED: Famotidine 20 MG/ 2ML VIAL IVP ONE (14:00)
[2016-11-16] MEDS ORDERED: Morphine Sulfate 4mg/ml Inj IVP ONE (14:00)
--- NOTE | 2016-11-16 14:01 | Emergency Room Report ---
History of Present Illness General Chief Complaint: Abdominal Pain Source: Patient, Family Member Present Illness HPI Patient presents with epigastric pain. She' unable to eat anything due to nausea (initially I was told she had persistent vomiting also, which she later denied).. The pain is severe at this time. The pain is epigastric and radiates into her chest. She has shortness of breath. She says she's had cardiac problems in the past. This pain is more in her stomach than in her chest. She has shortness of breath when the pain gets more severe. She's not taking any medication for this. She last moved her bowels 2 days ago and she denies any melena or hematochezia. She does complain of dysuria. No fevers, rashes. She feels weak when standing. No headache. She also has anxiety and schizophrenia. She denies SI or HI. H/O arthritis. No increased joint pain or swelling. Allergies: Coded Allergies: No Known Allergies (Unverified , 08/14/16) Patient History Past Medical History: see triage record Social History: Denies: smoking, alcohol use Social History Narrative with family Reviewed Nursing Documentation: PMH: Agreed, PSxH: Agreed Nursing Documentation-PMH Hx Hypertension: Yes Hx Diabetes: Yes Hx Cancer: No Hx Gastrointestinal Problems: No Hx Neurological Problems: Yes - ANXIETY Review of Systems All Other Systems: negative except mentioned in HPI Physical Exam Vital Signs Date Time Temp Pulse Resp B/P (MAP) Pulse Ox O2 Delivery O2 Flow Rate FiO2 11/16/16 13:33 97.7 73 20 175/73 95 Room Air Sp02 EP Interpretation: reviewed, normal General Appearance: alert, GCS 15, mild distress, obese Head: normocephalic, atraumatic Eyes: bilateral eye normal inspection, bilateral eye PERRL ENT: dry mucus membranes Neck: supple Respiratory: lungs clear, normal breath sounds Cardiovascular #1: regular rate, rhythm Cardiovascular #2: 2+ radial (R) Gastrointestinal: normal inspection, no mass, non-distended, no guarding, no rebound, abnormal bowel sounds - decreased, tenderness - epigastric, overweight Genitourinary: no CVA tenderness Musculoskeletal: back normal, gait/station normal, normal range of motion Neurologic: alert, oriented x3, grossly normal Psychiatric: depressed affect, anxious Skin: normal inspection, warm/dry Medical Decision Making Diagnostic Impression: Primary Impression: Intractable nausea and vomiting Qualified Codes: R11.2 - Nausea with vomiting, unspecified Additional Impressions: UTI (urinary tract infection) Qualified Codes: N30.00 - Acute cystitis without hematuria Morbid obesity Anxiety and depression ER Course The patient presents with epigastric pain and inability to the ED anything for one week. Differential includes acute myocardial infarction, gastritis, GERD, peptic ulcer disease, old cystitis, pancreatitis amongst others. Due to her obesity it's difficult by physical exam to determine diagnosis. Evaluation will be with EKG, CT of the abdomen and pelvis with contrast, labs. She will receive IV hydration. In addition to that she'll receive Zofran, Pepcid and morphine. Concern also of dyspnea with symptoms - consider atypical angina. Labs significant for normal WBC, renal function, lipase. Pyuria - treated with antibiotics. Still with nausea. Treated with Reglan and benadryl. With negative CT, consider gastritis or gastroparesis. Still with nausea and pain, but improved. Patient admitted med Dr. Chung. Laboratory Tests Test 11/16/16 14:00 White Blood Count 8.0 K/UL (4.8-10.8) Red Blood Count 3.83 M/UL (4.20-5.40) L Hemoglobin 11.9 G/DL (12.0-16.0) L Hematocrit 36.5 % (37.0-47.0) L Mean Corpuscular Volume 95 FL (80-99) Mean Corpuscular Hemoglobin 31.1 PG (27.0-31.0) H Mean Corpuscular Hemoglobin Concent 32.6 G/DL (32.0-36.0) Red Cell Distribution Width 12.8 % (11.6-14.8) Platelet Count 250 K/UL (150-450) Mean Platelet Volume 7.6 FL (6.5-10.1) Neutrophils (%) (Auto) 63.9 % (45.0-75.0) Lymphocytes (%) (Auto) 25.8 % (20.0-45.0) Monocytes (%) (Auto) 8.2 % (1.0-10.0) Eosinophils (%) (Auto) 1.3 % (0.0-3.0) Basophils (%) (Auto) 0.9 % (0.0-2.0) Prothrombin Time 10.0 SEC (9.30-11.50) Prothrombin Time INR 1.0 (0.9-1.1) PTT 25 SEC (23-33) Urine Color Pale yellow Urine Appearance Clear Urine pH 6.5 (4.5-8.0) Urine Specific [place] 1.015 (1.005-1.035) Urine Protein Negative (NEGATIVE) Urine Glucose (UA) Negative (NEGATIVE) Urine Ketones Negative (NEGATIVE) Urine Occult Blood Negative (NEGATIVE) Urine Nitrite Positive (NEGATIVE) H Urine Bilirubin Negative (NEGATIVE) Urine Urobilinogen Normal MG/DL (0.0-1.0) Urine Leukocyte Esterase 2+ (NEGATIVE) H Urine RBC 0-2 /HPF (0 - 2) Urine WBC 5-10 /HPF (0 - 2) H Urine Squamous Epithelial Cells Moderate /LPF (NONE/OCC) H Urine Bacteria Many /HPF (NONE) H Sodium Level 140 mEQ/L (135-145) Potassium Level 4.4 mEQ/L (3.4-4.9) Chloride Level 101 mEQ/L (98-107) Carbon Dioxide Level 27 mEQ/L (20-30) Anion Gap 12 (5-15) Blood Urea Nitrogen 23 mg/dL (7-23) Creatinine 0.6 mg/dL (0.5-0.9) Estimate Glomerular Filtration Rate > 60 mL/min (>60) Glucose Level 160 mg/dL (74-106) H Uric Acid 4.1 mg/dL (3.0-7.5) Calcium Level 9.5 mg/dL (8.6-10.2) Total Bilirubin 0.2 mg/dL (0.0-1.2) Aspartate Amino Transferase (AST) 15 U/L (5-40) Alanine Aminotransferase (ALT) 18 U/L (3-33) Alkaline Phosphatase 72 U/L (35-104) Troponin I < 0.30 ng/mL (<=0.30) Total Protein 7.7 g/dL (6.6-8.7) Albumin 4.0 g/dL (3.5-5.2) Globulin 3.7 g/dL Albumin/Globulin Ratio 1.0 (1.0-2.7) Lipase 16 U/L (< 60) EKG Diagnostic Results Rate: normal Rhythm: NSR ST Segments: no acute changes Rhythm Strip Diag. Results EP Interpretation: yes Rhythm: NSR, no PVC's, no ectopy CT/MRI/US Diagnostic Results CT/MRI/US Diagnostic Results : Imaging Test Ordered: abd pelvis Impression non-obstructing renal stone, no other pathology (pannus edema). Status: improved Disposition: ADMITTED INPATIENT Condition: Serious Alden Bryant M.D. Nov 16, 2016 14:01
[2016-11-16 14:25] LABS: APPEARANCE,URINE CLEAR; BASOPHILS % (AUTO) 0.9 % (0.0-2.0); EOSINOPHILS % (AUTO) 1.3 % (0.0-3.0); KETONES,URINE NEGATIVE (NEGATIVE); LEUKOCYTE ESTERASE ,URINE 2+ (NEGATIVE); LYMPHOCYTES % (AUTO) 25.8 % (20.0-45.0); MEAN CORPUSCULAR HEMOGLOBIN 31.1 PG (27.0-31.0); MEAN CORPUSCULAR HGB CONC 32.6 G/DL (32.0-36.0); MEAN CORPUSCULAR VOLUME 95 FL (80-99); MEAN PLATELET VOLUME 7.6 FL (6.5-10.1); MONOCYTES % (AUTO) 8.2 % (1.0-10.0); NEUTROPHILS % (AUTO) 63.9 % (45.0-75.0); NITRITE,URINE POSITIVE (NEGATIVE); PH,URINE 6.5 (4.5-8.0); PLATELET COUNT 250 K/UL (150-450); PROTEIN,URINE NEGATIVE (NEGATIVE); RED BLOOD COUNT 3.83 M/UL (4.20-5.40); RED CELL DISTRIBUTION WIDTH 12.8 % (11.6-14.8); UROBILINOGEN,URINE NORMAL MG/DL (0.0-1.0)
[2016-11-16 14:38] LABS: BACTERIA,URINE MANY /HPF; RBC,URINE 0-2 /HPF (0 - 2); SQUAMOUS EPITHELIAL CELL,UR MODERATE /LPF (NONE/OCC)
[2016-11-16 14:39] LABS: ALANINE AMINOTRANSFERASE 18 U/L (3-33); ANION GAP 12 (5-15); ASPARTATE AMINO TRANSFERASE 15 U/L (5-40); CALCIUM 9.5 mg/dL (8.6-10.2); CARBON DIOXIDE 27 mEQ/L (20-30); CHLORIDE 101 mEQ/L (98-107); CREATININE 0.6 mg/dL (0.5-0.9); GLOMERULAR FILTRATION RATE > 60 mL/min (>60); HEMOLYSIS 5; LIPASE 16 U/L (< 60); POTASSIUM 4.4 mEQ/L (3.4-4.9); SODIUM 140 mEQ/L (135-145); TOTAL PROTEIN 7.7 g/dL (6.6-8.7); TROPONIN I < 0.30 ng/mL (<=0.30)
[2016-11-16 15:04] VITALS: BP 148/54
[2016-11-16] MEDS ORDERED: cefTRIAXone 1 GM in NS 55 ML IVPB ONE (15:15)
[2016-11-16] MEDS ORDERED: DiphenhydrAMINE 50mg/ml Inj IVP ONE (16:45)
[2016-11-16] MEDS ORDERED: Metoclopramide 10mg/2ml Inj IVP ONE (16:45)
[2016-11-16] MEDS ORDERED: Nitroglycerin Subl 0.4mg tab (Bottle Of 25) SL PRN (17:45)
[2016-11-16] MEDS ORDERED: Mylanta II UD 30ml ORAL PRN (17:45)
[2016-11-16] MEDS ORDERED: Miralax 17gm pkt ORAL PRN (17:45)
[2016-11-16] MEDS ORDERED: Metoclopramide 10mg/2ml Inj IVP PRN (17:45)
[2016-11-16 18:17] VITALS: BP 138/86
[2016-11-16] MEDS ORDERED: LORazepam Inj 2mg/ml 1ml IV ONE (18:30)
[2016-11-16] MEDS: D5 1/2NS 1,000 ML IV SCH (18:35)
[2016-11-16 19:35] VITALS: BP 118/74
[2016-11-16] MEDS: BusPIRone 10mg Tab ORAL SCH (21:19)
[2016-11-16] MEDS: Heparin 5000 units/ml inj SUBQ SCH (21:21)
[2016-11-16] MEDS: NovoLOG Insulin Flexpen SUBQ SCH (21:21)
[2016-11-17 04:00] VITALS: BP 120/72
[2016-11-17] MEDS: Morphine Sulfate 2mg/ml Inj IVP PRN (06:04)
[2016-11-17] MEDS: NovoLOG Insulin Flexpen SUBQ SCH ×4 (06:05→20:59)
[2016-11-17 06:19] LABS: BASOPHILS % (AUTO) 0.7 % (0.0-2.0); EOSINOPHILS % (AUTO) 2.7 % (0.0-3.0); LYMPHOCYTES % (AUTO) 31.4 % (20.0-45.0); MEAN CORPUSCULAR HEMOGLOBIN 32.1 PG (27.0-31.0); MEAN CORPUSCULAR HGB CONC 33.2 G/DL (32.0-36.0); MEAN CORPUSCULAR VOLUME 97 FL (80-99); MEAN PLATELET VOLUME 7.9 FL (6.5-10.1); MONOCYTES % (AUTO) 9.5 % (1.0-10.0); NEUTROPHILS % (AUTO) 55.7 % (45.0-75.0); PLATELET COUNT 214 K/UL (150-450); RED BLOOD COUNT 3.37 M/UL (4.20-5.40); RED CELL DISTRIBUTION WIDTH 13.2 % (11.6-14.8); WHITE BLOOD COUNT 6.2 K/UL (4.8-10.8)
[2016-11-17 06:34] LABS: ALANINE AMINOTRANSFERASE 16 U/L (3-33); AMYLASE 43 U/L (10-110); ANION GAP 11 (5-15); ASPARTATE AMINO TRANSFERASE 15 U/L (5-40); CALCIUM 8.8 mg/dL (8.6-10.2); CARBON DIOXIDE 28 mEQ/L (20-30); CHLORIDE 99 mEQ/L (98-107); CREATININE 0.5 mg/dL (0.5-0.9); GLOMERULAR FILTRATION RATE > 60 mL/min (>60); HEMOLYSIS 1; LIPASE 20 U/L (< 60); POTASSIUM 4.1 mEQ/L (3.4-4.9); SODIUM 138 mEQ/L (135-145); TOTAL PROTEIN 6.8 g/dL (6.6-8.7)
[2016-11-17] MEDS: D5 1/2NS 1,000 ML IV SCH ×2 (07:50→20:41)
[2016-11-17 08:00] VITALS: BP 148/76
[2016-11-17] MEDS ORDERED: Miralax 17gm pkt ORAL PRN (09:30)
--- NOTE | 2016-11-17 10:00 | Diagnostic Imaging Report ---
Indication: Abdominal pain Technique: Continuous helical transaxial imaging of the abdomen and pelvis was obtained from the lung bases to the pubic symphysis during intravenous contrast administration. Coronal 2-D reformats were also obtained. Study obtained in a Siemens sensation [address] Total Dose length Product (DLP): [address] Dose Index Volume (CTDIvol): 26 mGy Comparison: None Findings: The heart is prominent. Linear densities are noted at the lung bases likely atelectasis. Nonobstructing 7 mm stone demonstrated within the right kidney. There is no hydronephrosis. A normal appendix is noted. There is no free fluid or free air. Uterus noted. Hypertrophic facets noted at multiple levels in the lumbar spine. Gallbladder is unremarkable. Solid organs are unremarkable. Impression: 7 mm nonobstructing right renal calculus. Degenerative changes of the lumbar spine [facility] has communicated the preliminary results to the Emergency Department. Their findings are largely concordant with this report. The CT scanner at [facility] is accredited by the [employer] and the scans are performed using dose optimization techniques as appropriate to a performed exam including Automatic Exposure control.
[2016-11-17] MEDS: Benztropine 1mg tab ORAL SCH (10:23)
[2016-11-17] MEDS: BusPIRone 10mg Tab ORAL SCH ×2 (10:23→18:41)
[2016-11-17] MEDS: Heparin 5000 units/ml inj SUBQ SCH ×2 (10:25→20:59)
[2016-11-17] MEDS: Esomeprazole sodium 40mg vial IVP SCH (11:16)
[2016-11-17 12:00] VITALS: BP 149/64
--- NOTE | 2016-11-17 12:55 | Diagnostic Imaging Report ---
Indication:Abdominal pain Technique: Grayscale and duplex Doppler imaging of the abdomen performed. Comparison: None Findings: The demonstrated part of the pancreas, aorta and IVC, both kidneys, spleen appear unremarkable. Gallstones are present. The liver is slightly echogenic. Stone seen in the right kidney on CT is not appreciated on the current exam. There is no biliary ductal dilatation identified. Doppler evaluation of the main portal vein shows patency. There is no ascites. No hydronephrosis seen. Impression: Cholelithiasis. Mild fatty liver Please refer to the separately dictated CT abdomen pelvis report
[2016-11-17] MEDS: LORazepam Inj 2mg/ml 1ml IV PRN ×2 (13:56→20:07)
--- NOTE | 2016-11-17 13:56 | GI Initial Consult Note ---
Hook,Park Mcdonough N.P. 11/17/16 1356: History of Present Illness General Date patient seen: Nov 17, 2016 Time patient seen: 13:38 Reason for Hospitalization: Abdominal Pain Referring physician: CARLY Reason for Consultation: ABDOMINAL PAIN Present Illness HPI Patient presents with epigastric pain. She's having eating anything due to nausea.. The pain is severe at this time. The pain is epigastric and radiates into her chest. She hasn't shortness of breath. She says she's had cardiac problems in the past. This pain is more in her stomach and in her chest. She hasn't shortness of breath when the pain gets more severe. She's not taking any medication for this. She last bowels 2 days ago he denies any melena or hematochezia. She does complain of dysuria. GI Consult. HPI as noted above. GI consulted for abdominal pain. Pt seen on floor, awake A&Ox4 NAD with no active s/sx of N/V/D. She presents today with anemia and epigastric pain. CT unremarkable. Troponin negative. Pt has no history of endoscopic procedures. Home Meds Active Scripts Furosemide* (LASIX*) 20 Mg Tablet, 20 MG ORAL DAILY for 30 Days, TAB Prov:SANA MACIAS 08/18/16 Quetiapine Fumarate* (SEROQUEL*) 100 Mg Tablet, 100 MG ORAL QHS for 30 Days, TAB Prov:COLLEEN08/18/16 Meclizine Hcl* (MECLIZINE*) 25 Mg Tablet, 25 MG ORAL Q6H for 30 Days, TAB Prov:SANA CARROLL 08/18/16 Reported Medications Escitalopram Oxalate* (LEXAPRO*) 20 Mg Tablet, 30 MG ORAL DAILY, TAB 11/16/16 Benztropine Mesylate* (BENZTROPINE MESYLATE*) 2 Mg Tablet, 2 MG ORAL DAILY, TAB 11/16/16 Buspirone HCl* (Buspirone HCl*) 5 Mg Tablet, 10 MG ORAL BID, TAB 11/16/16 Pioglitazone Hcl* (ACTOS*) 45 Mg Tablet, 45 MG ORAL DAILY, TAB 08/14/16 Glimepiride* (GLIMEPIRIDE*) 4 Mg Tablet, 4 MG ORAL DAILY, TAB 08/14/16 Quetiapine Fumarate* (SEROQUEL*) 200 Mg Tablet, 200 MG ORAL QHS, TAB 08/14/16 Med list reviewed/reconciled: Yes Allergies: Coded Allergies: No Known Allergies (Unverified , 08/14/16) Patient History History Provided By: Patient, Medical Record PMH Narrative Past Medical History: see triage record Social History: Denies: smoking, alcohol use Social History Narrative with family Reviewed Nursing Documentation: PMH: Agreed, PSxH: Agreed Nursing Documentation-PMH Hx Hypertension: Yes Hx Diabetes: Yes Hx Cancer: No Hx Gastrointestinal Problems: No Hx Neurological Problems: Yes - ANXIETY Social History: Denies: smoking, alcohol use, drug use, other Review of Systems All Other Systems: negative except mentioned in HPI Physical Exam Vital Signs Date Time Temp Pulse Resp B/P (MAP) Pulse Ox O2 Delivery O2 Flow Rate FiO2 11/16/16 13:33 97.7 73 20 175/73 95 Room Air Sp02 EP Interpretation: reviewed Labs Laboratory Tests Test 11/16/16 14:00 11/17/16 05:00 White Blood Count 8.0 K/UL (4.8-10.8) 6.2 K/UL (4.8-10.8) Red Blood Count 3.83 M/UL (4.20-5.40) L 3.37 M/UL (4.20-5.40) L Hemoglobin 11.9 G/DL (12.0-16.0) L 10.8 G/DL (12.0-16.0) L Hematocrit 36.5 % (37.0-47.0) L 32.7 % (37.0-47.0) L Mean Corpuscular Volume 95 FL (80-99) 97 FL (80-99) Mean Corpuscular Hemoglobin 31.1 PG (27.0-31.0) H 32.1 PG (27.0-31.0) H Mean Corpuscular Hemoglobin Concent 32.6 G/DL (32.0-36.0) 33.2 G/DL (32.0-36.0) Red Cell Distribution Width 12.8 % (11.6-14.8) 13.2 % (11.6-14.8) Platelet Count 250 K/UL (150-450) 214 K/UL (150-450) Mean Platelet Volume 7.6 FL (6.5-10.1) 7.9 FL (6.5-10.1) Neutrophils (%) (Auto) 63.9 % (45.0-75.0) 55.7 % (45.0-75.0) Lymphocytes (%) (Auto) 25.8 % (20.0-45.0) 31.4 % (20.0-45.0) Monocytes (%) (Auto) 8.2 % (1.0-10.0) 9.5 % (1.0-10.0) Eosinophils (%) (Auto) 1.3 % (0.0-3.0) 2.7 % (0.0-3.0) Basophils (%) (Auto) 0.9 % (0.0-2.0) 0.7 % (0.0-2.0) Prothrombin Time 10.0 SEC (9.30-11.50) Prothromb Time International Ratio 1.0 (0.9-1.1) Activated Partial Thromboplast Time 25 SEC (23-33) 27 SEC (23-33) Urine Color Pale yellow Urine Appearance Clear Urine pH 6.5 (4.5-8.0) Urine Specific [place] 1.015 (1.005-1.035) Urine Protein Negative (NEGATIVE) Urine Glucose (UA) Negative (NEGATIVE) Urine Ketones Negative (NEGATIVE) Urine Occult Blood Negative (NEGATIVE) Urine Nitrite Positive (NEGATIVE) H Urine Bilirubin Negative (NEGATIVE) Urine Urobilinogen Normal MG/DL (0.0-1.0) Urine Leukocyte Esterase 2+ (NEGATIVE) H Urine RBC 0-2 /HPF (0 - 2) Urine WBC 5-10 /HPF (0 - 2) H Urine Squamous Epithelial Cells Moderate /LPF (NONE/OCC) H Urine Bacteria Many /HPF (NONE) H Sodium Level 140 mEQ/L (135-145) 138 mEQ/L (135-145) Potassium Level 4.4 mEQ/L (3.4-4.9) 4.1 mEQ/L (3.4-4.9) Chloride Level 101 mEQ/L (98-107) 99 mEQ/L (98-107) Carbon Dioxide Level 27 mEQ/L (20-30) 28 mEQ/L (20-30) Anion Gap 12 (5-15) 11 (5-15) Blood Urea Nitrogen 23 mg/dL (7-23) 18 mg/dL (7-23) Creatinine 0.6 mg/dL (0.5-0.9) 0.5 mg/dL (0.5-0.9) Estimat Glomerular Filtration Rate > 60 mL/min (>60) > 60 mL/min (>60) Glucose Level 160 mg/dL (74-106) H 164 mg/dL (74-106) H Uric Acid 4.1 mg/dL (3.0-7.5) Calcium Level 9.5 mg/dL (8.6-10.2) 8.8 mg/dL (8.6-10.2) Total Bilirubin 0.2 mg/dL (0.0-1.2) < 0.2 mg/dL (0.0-1.2) Aspartate Amino Transf (AST/SGOT) 15 U/L (5-40) 15 U/L (5-40) Alanine Aminotransferase (ALT/SGPT) 18 U/L (3-33) 16 U/L (3-33) Alkaline Phosphatase 72 U/L (35-104) 68 U/L (35-104) Troponin I < 0.30 ng/mL (<=0.30) Total Protein 7.7 g/dL (6.6-8.7) 6.8 g/dL (6.6-8.7) Albumin 4.0 g/dL (3.5-5.2) 3.4 g/dL (3.5-5.2) L Globulin 3.7 g/dL 3.4 g/dL Albumin/Globulin Ratio 1.0 (1.0-2.7) 1.0 (1.0-2.7) Lipase 16 U/L (< 60) 20 U/L (< 60) Amylase Level 43 U/L (10-110) General Appearance: no apparent distress, alert, obese Head: normocephalic EENT: PERRL/EOMI, normal ENT inspection Neck: full range of motion Respiratory: normal breath sounds, no respiratory distress Cardiovascular: normal rate Gastrointestinal: normal inspection, non tender, soft Rectal: deferred Genitourinary: normal inspection Musculoskeletal: normal inspection, back normal Neurologic: normal inspection, alert, oriented x3, responsive Skin: normal inspection, normal color, no rash, warm/dry Lymphatic: normal inspection, no adenopathy Current Medications Current Medications Medications (Trade) Dose Ordered Sig/Ceferino Route PRN Reason Start Time Stop Time Status Last Admin Dose Admin Acetaminophen (Tylenol) 650 mg Q4H PRN ORAL fever 11/16/16 17:45 12/16/16 17:44 Al Hydroxide/Mg Hydroxide (Mylanta II) 30 ml Q6H PRN ORAL dyspepsia 11/16/16 17:45 12/16/16 17:44 Benztropine Mesylate (Cogentin) 2 mg DAILY ORAL 11/17/16 09:00 12/17/16 08:59 11/17/16 10:23 Bisacodyl (Dulcolax) 10 mg ONCE ONCE ORAL 11/17/16 16:00 11/17/16 16:01 Buspirone HCl (Buspar) 10 mg BID ORAL 11/16/16 20:00 12/16/16 19:59 11/17/16 10:23 Dextrose (Dextrose 50%) STAT PRN IV Hypoglycemia 11/16/16 17:45 12/16/16 17:44 Dextrose/Sodium Chloride 1,000 ml @ 75 mls/hr [id number] IV 11/16/16 18:00 12/16/16 17:59 11/17/16 07:50 Diphenhydramine HCl (Benadryl) 25 mg Q6H PRN ORAL Itching/Pruritis 11/16/16 17:45 12/16/16 17:44 Esomeprazole Sodium (Nexium I.v.) 40 mg DAILY IVP 11/17/16 09:00 12/17/16 08:59 11/17/16 11:16 Furosemide (Lasix) 20 mg DAILY ORAL 11/17/16 09:00 12/17/16 08:59 11/17/16 10:23 Heparin Sodium (Porcine) (Heparin 5000 units/ml) 5,000 units EVERY 12 HOURS SUBQ 11/16/16 21:00 12/16/16 20:59 11/17/16 10:25 Insulin Aspart (NovoLOG) BEFORE MEALS AND HS SUBQ 11/16/16 21:00 12/16/16 20:59 11/17/16 12:09 Lorazepam (Ativan 2mg/ml 1ml) 1 mg Q4H PRN IV agitation 11/16/16 17:45 11/23/16 17:44 Metoclopramide HCl (Reglan) 10 mg Q6H PRN IVP severe nausea 11/16/16 17:45 12/16/16 17:44 Morphine Sulfate (Morphine Sulfate) 2 mg Q4H PRN IVP severe Pain (Pain Scale 7-10) 11/16/16 17:45 11/23/16 17:44 11/17/16 06:04 Nitroglycerin (Ntg) 0.4 mg Q5M X 3 DOSES PRN SL Prn Chest Pain 11/16/16 17:45 12/16/16 17:44 Ondansetron HCl (Zofran) 4 mg Q6H PRN IVP Nausea & Vomiting 11/16/16 17:45 12/16/16 17:44 11/17/16 12:14 Polyethylene Glycol (Miralax) 17 gm DAILYPRN PRN ORAL Constipation 11/17/16 09:30 12/17/16 09:29 Polyethylene Glycol/ Electrolytes (Nulytely) 4,000 ml ONCE ONCE ORAL 11/17/16 16:00 11/17/16 16:01 Promethazine HCl (Phenergan) 25 mg Q8H PRN IV refractory nausea 11/16/16 17:45 12/16/16 17:44 Quetiapine Fumarate (SEROquel) 100 mg QHS ORAL 11/16/16 21:00 12/16/16 20:59 11/16/16 21:19 Temazepam (Restoril) 15 mg HSPRN PRN ORAL Insomnia 11/16/16 17:45 11/23/16 17:44 11/17/16 03:10 GI: Plan Problems: (1) Anemia (2) Epigastric abdominal pain (3) GERD (gastroesophageal reflux disease) (4) Intractable nausea and vomiting (5) Morbid obesity Plan APCT reviewed >> 7 mm nonobstructing right renal calculus. Degenerative changes of the lumbar spine abdominal U/S reviewed >> Cholelithiasis. Mild fatty liver EGD/colonoscopy scheduled for tomorrow. - CLD, NPO @ [facility]. - hold all blood thinners tonight anemia work up >> check B12 + folate levels ppi daily monitor H&H, prn transfusions fu labs Discussed with Dr. Orourke. Thank you for referring this patient, we will follow. RUPERTO OROURKE 11/18/16 1205: History of Present Illness General Reason for Hospitalization: Abdominal Pain Present Illness Home Meds Active Scripts Furosemide* (LASIX*) 20 Mg Tablet, 20 MG ORAL DAILY for 30 Days, TAB Prov:ZARRABI,MIRALI 08/18/16 Quetiapine Fumarate* (SEROQUEL*) 100 Mg Tablet, 100 MG ORAL QHS for 30 Days, TAB Prov:ZARRABI,MIRALI 08/18/16 Meclizine Hcl* (MECLIZINE*) 25 Mg Tablet, 25 MG ORAL Q6H for 30 Days, TAB Prov:RR,08/18/16 Reported Medications Escitalopram Oxalate* (LEXAPRO*) 20 Mg Tablet, 30 MG ORAL DAILY, TAB 11/16/16 Benztropine Mesylate* (BENZTROPINE MESYLATE*) 2 Mg Tablet, 2 MG ORAL DAILY, TAB 11/16/16 Buspirone HCl* (Buspirone HCl*) 5 Mg Tablet, 10 MG ORAL BID, TAB 11/16/16 Pioglitazone Hcl* (ACTOS*) 45 Mg Tablet, 45 MG ORAL DAILY, TAB 08/14/16 Glimepiride* (GLIMEPIRIDE*) 4 Mg Tablet, 4 MG ORAL DAILY, TAB 08/14/16 Quetiapine Fumarate* (SEROQUEL*) 200 Mg Tablet, 200 MG ORAL QHS, TAB 08/14/16 Allergies: Coded Allergies: No Known Allergies (Unverified , 08/14/16) GI: Plan Plan The patient was seen and examined at bedside and all new and available data was reviewed in the patients chart. I agree with the above findings, impression and plan. (Patient seen earlier today. Signature stamp does not reflect patient encounter time.). -Ruperto Hook,[facility] Ceasar N.PPetra Nov 17, 2016 13:56 RUPERTO OROURKE Nov 18, 2016 12:05
[2016-11-17 16:00] VITALS: BP 143/78
[2016-11-17] MEDS ORDERED: Nulytely 4L ORAL ONE (16:00)
[2016-11-17] MEDS ORDERED: Bisacodyl EC 5mg tab ORAL ONE (16:00)
--- NOTE | 2016-11-17 18:14 | History and Physical ---
History of Present Illness General Date patient seen: Nov 17, 2016 Reason for Hospitalization: Abdominal Pain Present Illness HPI 61 year old female with Pmhx of anxiety and schizophrenia presented with epigastric pain. She' unable to eat anything due to nausea . The pain is severe at this time.. She has shortness of breath. She says she's had cardiac problems in the past. She has shortness of breath when the pain gets more severe. She's not taking any medication for this. She last moved her bowels 2 days ago and she denies any melena or hematochezia. She does complain of dysuria. She is admitted for intractable nausea and vomiting. Allergies: Coded Allergies: No Known Allergies (Unverified , 08/14/16) Medication History Scheduled Benztropine Mesylate* (Benztropine Mesylate*), 2 MG ORAL DAILY, (Reported) Buspirone HCl* (Buspirone HCl*), 10 MG ORAL BID, (Reported) Escitalopram Oxalate* (Lexapro*), 30 MG ORAL DAILY, (Reported) Furosemide* (Lasix*), 20 MG ORAL DAILY Glimepiride* (Glimepiride*), 4 MG ORAL DAILY, (Reported) Meclizine Hcl* (Meclizine*), 25 MG ORAL Q6H Pioglitazone Hcl* (Actos*), 45 MG ORAL DAILY, (Reported) Quetiapine Fumarate* (Seroquel*), 100 MG ORAL QHS Discontinued Medications Quetiapine Fumarate* (Seroquel*), 200 MG ORAL QHS, (Reported) Discontinued Reason: MD discontinued med Patient History Healthcare decision maker Resuscitation status Full Code Advanced Directive on File No Past Medical/Surgical History Past Medical/Surgical History: (1) Morbid obesity (2) GERD (gastroesophageal reflux disease) Review of Systems Gastrointestinal: Reports: abdominal pain, constipation, vomiting All Other Systems: negative except mentioned in HPI Physical Exam General Appearance: WD/WN Lines, tubes and drains: peripheral, PICC HEENT: normocephalic, atraumatic Neck: non-tender, normal alignment Respiratory/Chest: chest wall non-tender, lungs clear Breasts: no masses Cardiovascular/Chest: normal peripheral pulses Abdomen: normal bowel sounds, non tender Genitourinary/Rectal: normal genital exam Extremities: normal range of motion Last 24 Hour Vital Signs Date Time Temp Pulse Resp B/P (MAP) Pulse Ox O2 Delivery O2 Flow Rate FiO2 11/17/16 16:00 97.5 65 20 143/78 95 Room Air 11/17/16 12:00 96.1 64 20 149/64 96 Room Air 11/17/16 08:00 97.3 97 20 148/76 96 Room Air 11/17/16 06:34 98.1 11/17/16 04:00 98.1 72 18 120/72 92 Room Air 11/16/16 19:35 97.8 71 20 118/74 96 Room Air 11/16/16 19:13 97.7 73 20 129/81 95 Room Air 11/16/16 18:17 75 20 138/86 95 Room Air Intake and Output 11/17/16 11/18/16 19:00 07:00 Intake Total 750 ml Balance 750 ml Intake Oral 300 ml IV Total 450 ml # Voids 5 Laboratory Tests Test 11/17/16 05:00 White Blood Count 6.2 K/UL (4.8-10.8) Red Blood Count 3.37 M/UL (4.20-5.40) L Hemoglobin 10.8 G/DL (12.0-16.0) L Hematocrit 32.7 % (37.0-47.0) L Mean Corpuscular Volume 97 FL (80-99) Mean Corpuscular Hemoglobin 32.1 PG (27.0-31.0) H Mean Corpuscular Hemoglobin Concent 33.2 G/DL (32.0-36.0) Red Cell Distribution Width 13.2 % (11.6-14.8) Platelet Count 214 K/UL (150-450) Mean Platelet Volume 7.9 FL (6.5-10.1) Neutrophils (%) (Auto) 55.7 % (45.0-75.0) Lymphocytes (%) (Auto) 31.4 % (20.0-45.0) Monocytes (%) (Auto) 9.5 % (1.0-10.0) Eosinophils (%) (Auto) 2.7 % (0.0-3.0) Basophils (%) (Auto) 0.7 % (0.0-2.0) Activated Partial Thromboplast Time 27 SEC (23-33) Sodium Level 138 mEQ/L (135-145) Potassium Level 4.1 mEQ/L (3.4-4.9) Chloride Level 99 mEQ/L (98-107) Carbon Dioxide Level 28 mEQ/L (20-30) Anion Gap 11 (5-15) Blood Urea Nitrogen 18 mg/dL (7-23) Creatinine 0.5 mg/dL (0.5-0.9) Estimat Glomerular Filtration Rate > 60 mL/min (>60) Glucose Level 164 mg/dL (74-106) H Calcium Level 8.8 mg/dL (8.6-10.2) Total Bilirubin < 0.2 mg/dL (0.0-1.2) Aspartate Amino Transf (AST/SGOT) 15 U/L (5-40) Alanine Aminotransferase (ALT/SGPT) 16 U/L (3-33) Alkaline Phosphatase 68 U/L (35-104) Total Protein 6.8 g/dL (6.6-8.7) Albumin 3.4 g/dL (3.5-5.2) L Globulin 3.4 g/dL Albumin/Globulin Ratio 1.0 (1.0-2.7) Amylase Level 43 U/L (10-110) Lipase 20 U/L (< 60) Height (Feet): 5 Height (Inches): 1.00 Weight (Pounds): 307 Medications Current Medications Medications (Trade) Dose Ordered Sig/Ceferino Route PRN Reason Start Time Stop Time Status Last Admin Dose Admin Acetaminophen (Tylenol) 650 mg Q4H PRN ORAL fever 11/16/16 17:45 12/16/16 17:44 Al Hydroxide/Mg Hydroxide (Mylanta II) 30 ml Q6H PRN ORAL dyspepsia 11/16/16 17:45 12/16/16 17:44 Benztropine Mesylate (Cogentin) 2 mg DAILY ORAL 11/17/16 09:00 12/17/16 08:59 11/17/16 10:23 Buspirone HCl (Buspar) 10 mg BID ORAL 11/16/16 20:00 12/16/16 19:59 11/17/16 10:23 Dextrose (Dextrose 50%) STAT PRN IV Hypoglycemia 11/16/16 17:45 12/16/16 17:44 Dextrose/Sodium Chloride 1,000 ml @ 75 mls/hr [id number] IV 11/16/16 18:00 12/16/16 17:59 11/17/16 07:50 Diphenhydramine HCl (Benadryl) 25 mg Q6H PRN ORAL Itching/Pruritis 11/16/16 17:45 12/16/16 17:44 Esomeprazole Sodium (Nexium I.v.) 40 mg DAILY IVP 11/17/16 09:00 12/17/16 08:59 11/17/16 11:16 Furosemide (Lasix) 20 mg DAILY ORAL 11/17/16 09:00 12/17/16 08:59 11/17/16 10:23 Heparin Sodium (Porcine) (Heparin 5000 units/ml) 5,000 units EVERY 12 HOURS SUBQ 11/16/16 21:00 12/16/16 20:59 11/17/16 10:25 Insulin Aspart (NovoLOG) BEFORE MEALS AND HS SUBQ 11/16/16 21:00 12/16/16 20:59 11/17/16 17:02 Lorazepam (Ativan 2mg/ml 1ml) 1 mg Q4H PRN IV agitation 11/16/16 17:45 11/23/16 17:44 11/17/16 13:56 Metoclopramide HCl (Reglan) 10 mg Q6H PRN IVP severe nausea 11/16/16 17:45 12/16/16 17:44 Morphine Sulfate (Morphine Sulfate) 2 mg Q4H PRN IVP severe Pain (Pain Scale 7-10) 11/16/16 17:45 11/23/16 17:44 11/17/16 06:04 Nitroglycerin (Ntg) 0.4 mg Q5M X 3 DOSES PRN SL Prn Chest Pain 11/16/16 17:45 12/16/16 17:44 Ondansetron HCl (Zofran) 4 mg Q6H PRN IVP Nausea & Vomiting 11/16/16 17:45 12/16/16 17:44 11/17/16 12:14 Polyethylene Glycol (Miralax) 17 gm DAILYPRN PRN ORAL Constipation 11/17/16 09:30 12/17/16 09:29 Promethazine HCl (Phenergan) 25 mg Q8H PRN IV refractory nausea 11/16/16 17:45 12/16/16 17:44 Quetiapine Fumarate (SEROquel) 100 mg QHS ORAL 11/16/16 21:00 12/16/16 20:59 11/16/16 21:19 Temazepam (Restoril) 15 mg HSPRN PRN ORAL Insomnia 11/16/16 17:45 11/23/16 17:44 11/17/16 03:10 Assessment/Plan Problem List: (1) Epigastric abdominal pain ICD Codes: R10.13 - Epigastric pain SNOMED: 39628656 (2) GERD (gastroesophageal reflux disease) ICD Codes: K21.9 - Gastro-esophageal reflux disease without esophagitis SNOMED: 058545270 (3) Morbid obesity ICD Codes: E66.01 - Morbid (severe) obesity due to excess calories SNOMED: 226181150, [id number] Assessment/Plan npo GI evaluation symptomatic treatment iv lfuids check electrolytes dvt prophylaxis SANA CARROLL Nov 17, 2016 18:14
--- NOTE | 2016-11-17 18:23 | Cardiology Report ---
APPROVED REPORT EXAM: Two-dimensional and M-mode echocardiogram with Doppler and color Doppler. INDICATION Left ventricular function M-Mode DIMENSIONS IVSd0.9 (0.7-1.1cm)Left Atrium (MM)4.4 (1.6-4.0cm) LVDd5.4 (3.5-5.6cm)Aortic Root2.8 (2.0-3.7cm) PWd1.3 (0.7-1.1cm)Aortic Cusp Exc.1.6 (1.5-2.0cm) LVDs3.3 (2.5-4.0cm) PWs2.0 cm Technically difficult study due to poor acoustic windows Study quality precludes accurate assessment of regional wall motion. Normal left ventricular chamber size, systolic function and wall motion. Left ventricular ejection fraction estimated to be 60-65%. No evidence of left ventricular hypertrophy. Anterior Echo-free space, may be due to pericardial fat or effusion. Right cardiac chamber sizes are within normal limits. Mild left atrial enlargement by 2D. Focal aortic valve sclerosis with adequate cusp excursion Thickened mitral valve leaflets with normal excursion. Mitral annulus and aortic root calcification. Pulmonic valve not well visualized. Normal tricuspid valve structure. IVC is normal in size with physiologic collapse. poor valvular definition A color flow and spectral Doppler study was performed and revealed: Mild aortic regurgitation.PG 25 and MG 12 mmhg across aortic valve recorded Mild mitral regurgitation. Normal left ventricular diastolic function. Trace tricuspid regurgitation. Consistent with mild pulmonary hypertension. Tricuspid systolic velocities suggests peak right ventricular systolic pressure of 45 mmHg
[2016-11-17 20:00] VITALS: BP 143/72
[2016-11-18] VITALS (12 sets, daily range): BP systolic 127–159; BP diastolic 50–79
[2016-11-18] MEDS: NovoLOG Insulin Flexpen SUBQ SCH ×4 (06:09→20:43)
--- NOTE | 2016-11-18 06:13 | Anethesia Preoperative Eval ---
Anesthesia Pre-op PMH/ROS General Date of Evaluation: Nov 18, 2016 Time of Evaluation: 06:10 Anesthesiologist: chanel ASA Score: ASA 3 Mallampati Score Class I : Soft palate, uvula, fauces, pillars visible Class II: Soft palate, uvula, fauces visible Class III: Soft palate, base of uvula visible Class IV: Only hard plate visible Mallampati Classification: Class II Surgeon: brayden Diagnosis: anemia Surgical Procedure: egd/colonoscopy Anesthesia History: none Social History: smoking - nonsmoker Family History: no anesthesia problems Allergies: Coded Allergies: No Known Allergies (Unverified , 08/14/16) Medications: see eMAR Past Medical History Cardiovascular: Reports: HTN Gastrointestinal/Genitourinary: Reports: GERD Neurologic/Psychiatric: Reports: depression/anxiety Endocrine: Reports: DM Hematology/Immune: Reports: anemia Musculoskeletal/Integumentary: Reports: OA Other: obesity Anesthesia Pre-op Phys. Exam Physician Exam Last Vital Signs Date Time Temp Pulse Resp B/P (MAP) Pulse Ox O2 Delivery O2 Flow Rate FiO2 11/18/16 05:01 97.8 77 20 139/76 96 Room Air Constitutional: NAD Neurologic: CN 2-12 intact Cardiovascular: RRR Respiratory: CTA Gastrointestinal: S/NT/ND Airway Exam Mallampati Score: Class II MO: full Neck: fleshy TMD: 2fb ROM: limited Teeth: intact Anesthesia Pre-op A/P Labs Labs Test 11/16/16 14:00 11/17/16 05:00 White Blood Count 8.0 K/UL (4.8-10.8) 6.2 K/UL (4.8-10.8) Red Blood Count 3.83 M/UL (4.20-5.40) 3.37 M/UL (4.20-5.40) Hemoglobin 11.9 G/DL (12.0-16.0) 10.8 G/DL (12.0-16.0) Hematocrit 36.5 % (37.0-47.0) 32.7 % (37.0-47.0) Mean Corpuscular Volume 95 FL (80-99) 97 FL (80-99) Mean Corpuscular Hemoglobin 31.1 PG (27.0-31.0) 32.1 PG (27.0-31.0) Mean Corpuscular Hemoglobin Concent 32.6 G/DL (32.0-36.0) 33.2 G/DL (32.0-36.0) Red Cell Distribution Width 12.8 % (11.6-14.8) 13.2 % (11.6-14.8) Platelet Count 250 K/UL (150-450) 214 K/UL (150-450) Mean Platelet Volume 7.6 FL (6.5-10.1) 7.9 FL (6.5-10.1) Neutrophils (%) (Auto) 63.9 % (45.0-75.0) 55.7 % (45.0-75.0) Lymphocytes (%) (Auto) 25.8 % (20.0-45.0) 31.4 % (20.0-45.0) Monocytes (%) (Auto) 8.2 % (1.0-10.0) 9.5 % (1.0-10.0) Eosinophils (%) (Auto) 1.3 % (0.0-3.0) 2.7 % (0.0-3.0) Basophils (%) (Auto) 0.9 % (0.0-2.0) 0.7 % (0.0-2.0) Prothrombin Time 10.0 SEC (9.30-11.50) Prothromb Time International Ratio 1.0 (0.9-1.1) Activated Partial Thromboplast Time 25 SEC (23-33) 27 SEC (23-33) Urine Color Pale yellow Urine Appearance Clear Urine pH 6.5 (4.5-8.0) Urine Specific [place] 1.015 (1.005-1.035) Urine Protein Negative (NEGATIVE) Urine Glucose (UA) Negative (NEGATIVE) Urine Ketones Negative (NEGATIVE) Urine Occult Blood Negative (NEGATIVE) Urine Nitrite Positive (NEGATIVE) Urine Bilirubin Negative (NEGATIVE) Urine Urobilinogen Normal MG/DL (0.0-1.0) Urine Leukocyte Esterase 2+ (NEGATIVE) Urine RBC 0-2 /HPF (0 - 2) Urine WBC 5-10 /HPF (0 - 2) Urine Squamous Epithelial Cells Moderate /LPF (NONE/OCC) Urine Bacteria Many /HPF (NONE) Sodium Level 140 mEQ/L (135-145) 138 mEQ/L (135-145) Potassium Level 4.4 mEQ/L (3.4-4.9) 4.1 mEQ/L (3.4-4.9) Chloride Level 101 mEQ/L (98-107) 99 mEQ/L (98-107) Carbon Dioxide Level 27 mEQ/L (20-30) 28 mEQ/L (20-30) Anion Gap 12 (5-15) 11 (5-15) Blood Urea Nitrogen 23 mg/dL (7-23) 18 mg/dL (7-23) Creatinine 0.6 mg/dL (0.5-0.9) 0.5 mg/dL (0.5-0.9) Estimat Glomerular Filtration Rate > 60 mL/min (>60) > 60 mL/min (>60) Glucose Level 160 mg/dL (74-106) 164 mg/dL (74-106) Uric Acid 4.1 mg/dL (3.0-7.5) Calcium Level 9.5 mg/dL (8.6-10.2) 8.8 mg/dL (8.6-10.2) Total Bilirubin 0.2 mg/dL (0.0-1.2) < 0.2 mg/dL (0.0-1.2) Aspartate Amino Transf (AST/SGOT) 15 U/L (5-40) 15 U/L (5-40) Alanine Aminotransferase (ALT/SGPT) 18 U/L (3-33) 16 U/L (3-33) Alkaline Phosphatase 72 U/L (35-104) 68 U/L (35-104) Troponin I < 0.30 ng/mL (<=0.30) Total Protein 7.7 g/dL (6.6-8.7) 6.8 g/dL (6.6-8.7) Albumin 4.0 g/dL (3.5-5.2) 3.4 g/dL (3.5-5.2) Globulin 3.7 g/dL 3.4 g/dL Albumin/Globulin Ratio 1.0 (1.0-2.7) 1.0 (1.0-2.7) Lipase 16 U/L (< 60) 20 U/L (< 60) Amylase Level 43 U/L (10-110) Risk Assessment & Plan Assessment: asa3 Plan: mac Status Change Before Surgery: No Pre-Antibiotics Drug: LAILA Andrews Nov 18, 2016 06:13
[2016-11-18] MEDS ORDERED: NS 550ML IV ONE ×2 (06:50→09:22)
--- NOTE | 2016-11-18 07:04 | Pre-Procedure Note/Attestation ---
Pre-Procedure Note/Attestation Complete Prior to Procedure Planned Procedure: not applicable Procedure Narrative: esophagogastroduodenoscopy and colonoscopy Indications for Procedure Pre-Operative Diagnosis: anemia Attestation I attest that I discussed the nature of the procedure; its benefits; risks and complications; and alternatives (and the risks and benefits of such alternatives ), prior to the procedure, with the patient (or the patient's legal marketing development representative). I attest that, if there was a reasonable possibility of needing a blood transfusion, the patient (or the patient's legal marketing development representative) was given the [facility] standardized written summary, pursuant to the [place] Blood Safety Act ([place] Health and Safety Code # 1645, as amended). I attest that I re-evaluated the patient just prior to the surgery and that there has been no change in the patient's H&P, except as documented below: LOUIE OROURKE Nov 18, 2016 07:03
[2016-11-18 07:05] LABS: PROTHROMBIN TIME 10.3 SEC (9.30-11.50)
--- NOTE | 2016-11-18 07:22 | Endoscopy Procedure Note ---
Endoscopy Procedure Note Indication for Procedure: anemia Procedures Performed: EGD, colonoscopy Operative Findings/Diagnosis: gastritis, one polyp Specimen: yes Pt Tolerated Procedure Well: Yes Estimated Blood Loss: none Anesthesiologist: chanel Anesthesia: MAC Implant(s) used?: No 50 yrs or older w/o bx or poly: Not Applicable 10yrs. F/U not recommended: Not Applicable LOUIE OROURKE Nov 18, 2016 07:22
[2016-11-18 07:27] LABS: BASOPHILS % (AUTO) 0.6 % (0.0-2.0); LYMPHOCYTES % (AUTO) 28.3 % (20.0-45.0); MEAN CORPUSCULAR HEMOGLOBIN 31.6 PG (27.0-31.0); MEAN CORPUSCULAR HGB CONC 32.8 G/DL (32.0-36.0); MEAN CORPUSCULAR VOLUME 96 FL (80-99); MEAN PLATELET VOLUME 7.7 FL (6.5-10.1); MONOCYTES % (AUTO) 9.7 % (1.0-10.0); NEUTROPHILS % (AUTO) 58.4 % (45.0-75.0); PLATELET COUNT 207 K/UL (150-450); RED BLOOD COUNT 3.43 M/UL (4.20-5.40); WHITE BLOOD COUNT 7.2 K/UL (4.8-10.8)
[2016-11-18 07:31] LABS: ANION GAP 11 (5-15); CALCIUM 8.6 mg/dL (8.6-10.2); CARBON DIOXIDE 29 mEQ/L (20-30); CHLORIDE 100 mEQ/L (98-107); CREATININE 0.6 mg/dL (0.5-0.9); GLOMERULAR FILTRATION RATE > 60 mL/min (>60); HEMOLYSIS 1; POTASSIUM 3.6 mEQ/L (3.4-4.9); SODIUM 140 mEQ/L (135-145)
--- NOTE | 2016-11-18 07:36 | Immediate Post-Op Evaluation ---
Immediate Post-Op Evalulation Immediate Post-Op Evalulation Procedure: egd/colonoscopy Date of Evaluation: Nov 18, 2016 Time of Evaluation: 07:40 IV Fluids: 0.9ns 300ml Blood Products: none Estimated Blood Loss: negligible Blood Pressure Systolic: 145 Blood Pressure Diastolic: 54 Pulse Rate: 71 Respiratory Rate: 18 O2 Sat by Pulse Oximetry: 100 Temperature (Fahrenheit): 97.7 Pain Score (1-10): 0 Nausea: No Vomiting: No Complications none Patient Status: awake, reacts, patent Hydration Status: adequate Drug: LAILA Andrews Nov 18, 2016 07:36
[2016-11-18] MEDS ORDERED: Hydromorphone 0.5mg/0.5ml inj IVP PRN (07:45)
[2016-11-18] MEDS ORDERED: Midazolam 2mg/2ml Inj IVP PRN (07:45)
[2016-11-18] MEDS ORDERED: DiphenhydrAMINE 50mg/ml Inj IVP PRN (07:45)
[2016-11-18] MEDS ORDERED: Atropine Inj 1mg/10ml Syr IV PRN (07:45)
--- NOTE | 2016-11-18 08:20 | 48 Hour Post Anesthesia Eval ---
Post Anesthesia Evaluation Procedure: egd/colonoscopy Date of Evaluation: Nov 18, 2016 Time of Evaluation: 08:19 Blood Pressure Systolic: 125 0: 58 Pulse Rate: 68 Respiratory Rate: 23 Temperature (Fahrenheit): 97.7 O2 Sat by Pulse Oximetry: 100 Airway: patent Nausea: No Vomiting: No Pain Intensity: 0 Hydration Status: adequate Cardiopulmonary Status: stable Mental Status/LOC: patient returned to baseline Post-Anesthesia Complications: none Follow-up care needed: N/A LAILA TAO Nov 18, 2016 08:20
[2016-11-18] MEDS: LORazepam Inj 2mg/ml 1ml IV PRN ×3 (08:47→20:45)
[2016-11-18] MEDS: Benztropine 1mg tab ORAL SCH (08:48)
[2016-11-18] MEDS: BusPIRone 10mg Tab ORAL SCH ×2 (08:48→18:00)
[2016-11-18] MEDS: Heparin 5000 units/ml inj SUBQ SCH ×2 (08:53→20:42)
[2016-11-18] MEDS ORDERED: Lidocaine 1% MPF 10mg/ml 5ml ONE (09:22)
[2016-11-18] MEDS ORDERED: Propofol 10mg/ml 20ml IV ONE (09:22)
[2016-11-18] MEDS: Esomeprazole sodium 40mg vial IVP SCH (10:00)
[2016-11-18] MEDS: D5 1/2NS 1,000 ML IV SCH ×2 (10:12→23:20)
--- NOTE | 2016-11-18 16:15 | Procedure Note ---
DATE OF PROCEDURE: 11/18/2016 SURGEON: Ruperto Murdock M.D. PROCEDURE: Upper endoscopy with biopsy and colonoscopy with biopsy. ANESTHESIOLOGIST: Saira Amado M.D. INSTRUMENT: Olympus adult flexible upper endoscope and colonoscope. INDICATION: Anemia. REASON FOR PROCEDURE: The procedure, risks, benefits, and possible consequences, including hemorrhage, aspiration, perforation and infection, and alternative treatments, were explained to the patient/legal guardian by Dr. Ruperto Murdock and the patient/legal guardian understood and accepted these risks. DESCRIPTION OF PROCEDURE: After informed consent was obtained, the patient was adequately sedated, Olympus upper endoscope was advanced from mouth into the second portion of duodenum and retroflexion was performed in the stomach. The patient had evidence of diffuse gastritis. Random biopsy from antrum of the stomach was obtained to rule out H. pylori infection. The rest of the upper endoscopy examination was grossly within normal limits. At this time, the scope was retrieved and the patient was turned over for colonoscopy. First, a rectal exam was performed, which was positive for internal hemorrhoids. Then, the scope was advanced from rectum into the cecum documented with appendiceal orifice, ileocecal valve, and right upper quadrant palpation. Quality of prep was relatively good except for may be about 10% of the colonic mucosa was not carefully examined given there was some stool throughout the colon. The patient had one polyp in the proximal transverse colon measured roughly about 4 mm, removed with the biopsy forceps technique. There was no further polyp seen in this examination. Retroflexion of rectum showed evidence of medium-sized internal hemorrhoids. The patient tolerated the procedure very well without any complication. SUMMARY OF FINDINGS: 1. Gastritis, status post biopsy. 2. One colonic polyp removed, see above for detail. 3. Internal hemorrhoids. RECOMMENDATIONS: Follow biopsy results and treat accordingly. I want to thank, Dr. Chung, for this kind referral. Ruperto Murdock M.D. DR: JAMEY JOB#: [id number] CC: Oanh Chung M.D.; Fax#: [phone]
[2016-11-18] MEDS: Morphine Sulfate 2mg/ml Inj IVP PRN (16:21)
--- NOTE | 2016-11-18 16:33 | Cardiology Report ---
APPROVED REPORT EKG Measurement Heart [id number] Normal sinus rhythm with sinus arrhythmia Normal ECG
--- NOTE | 2016-11-18 22:01 | Pulmonology Progress Note ---
Assessment/Plan Problems: (1) Epigastric abdominal pain (2) GERD (gastroesophageal reflux disease) (3) Morbid obesity Assessment/Plan EGD results noted symptomatic treatment advance diet Subjective ROS Limited/Unobtainable: No Allergies: Coded Allergies: No Known Allergies (Unverified , 08/14/16) Objective Last 24 Hour Vital Signs Date Time Temp Pulse Resp B/P (MAP) Pulse Ox O2 Delivery O2 Flow Rate FiO2 11/18/16 16:51 98.9 11/18/16 16:00 98.1 70 21 149/61 93 Room Air 11/18/16 11:53 98.9 78 20 159/79 91 Room Air 11/18/16 08:22 98.4 71 21 141/52 91 Room Air 11/18/16 08:20 68 23 100 11/18/16 07:50 97.6 68 25 129/58 96 Room Air 11/18/16 07:45 66 23 150/54 95 Room Air 11/18/16 07:40 68 25 139/56 97 Room Air 11/18/16 07:36 71 18 100 11/18/16 07:35 68 24 145/54 100 Nasal Cannula 3.0 11/18/16 07:28 97.7 67 26 127/54 99 Nasal Cannula 3.0 11/18/16 05:01 97.8 77 20 139/76 96 Room Air 11/18/16 04:00 97.8 77 20 139/76 96 Room Air 11/18/16 00:00 98.1 72 18 147/68 95 Room Air Intake and Output 11/18/16 11/19/16 19:00 07:00 Intake Total 1125 ml Output Total 0 ml Balance 1125 ml Intake Oral 200 ml IV Total 925 ml Estimated Blood Loss 0 ml # Voids 6 General Appearance: WD/WN HEENT: normocephalic, anicteric Respiratory/Chest: chest wall non-tender, lungs clear Breasts: no masses Cardiovascular: normal rate Abdomen: normal bowel sounds, soft, non tender Genitourinary: normal external genitalia Extremities: no clubbing Microbiology Date/Time Source Procedure Growth Status 11/16/16 14:00 Urine,Clean Catch Urine Culture - Final Escherichia Coli Complete Laboratory Tests 11/18/16 05:55: White Blood Count 7.2, Red Blood Count 3.43L, Hemoglobin 10.8L, Hematocrit 33.0L , Mean Corpuscular Volume 96, Mean Corpuscular Hemoglobin 31.6H, Mean Corpuscular Hemoglobin Concent 32.8, Red Cell Distribution Width 13.0, Platelet Count 207, Mean Platelet Volume 7.7, Neutrophils (%) (Auto) 58.4, Lymphocytes (% ) (Auto) 28.3, Monocytes (%) (Auto) 9.7, Eosinophils (%) (Auto) 3.0, Basophils ( %) (Auto) 0.6, Prothrombin Time 10.3, Prothromb Time International Ratio 1.0, Activated Partial Thromboplast Time 29, Sodium Level 140, Potassium Level 3.6, Chloride Level 100, Carbon Dioxide Level 29, Anion Gap 11, Blood Urea Nitrogen 11, Creatinine 0.6, Estimat Glomerular Filtration Rate > 60, Glucose Level 155H , Calcium Level 8.6 Current Medications Medications (Trade) Dose Ordered Sig/Ceferino Route PRN Reason Start Time Stop Time Status Last Admin Dose Admin Acetaminophen (Tylenol) 650 mg Q4H PRN ORAL fever 11/16/16 17:45 12/16/16 17:44 Al Hydroxide/Mg Hydroxide (Mylanta II) 30 ml Q6H PRN ORAL dyspepsia 11/16/16 17:45 12/16/16 17:44 Benztropine Mesylate (Cogentin) 2 mg DAILY ORAL 11/17/16 09:00 12/17/16 08:59 11/18/16 08:48 Buspirone HCl (Buspar) 10 mg BID ORAL 11/16/16 20:00 12/16/16 19:59 11/18/16 08:48 Dextrose (Dextrose 50%) STAT PRN IV Hypoglycemia 11/16/16 17:45 12/16/16 17:44 Dextrose/Sodium Chloride 1,000 ml @ 75 mls/hr [id number] IV 11/16/16 18:00 12/16/16 17:59 11/18/16 10:12 Diphenhydramine HCl (Benadryl) 25 mg Q6H PRN ORAL Itching/Pruritis 11/16/16 17:45 12/16/16 17:44 Esomeprazole Sodium (Nexium I.v.) 40 mg DAILY IVP 11/17/16 09:00 12/17/16 08:59 11/18/16 10:00 Furosemide (Lasix) 20 mg DAILY ORAL 11/17/16 09:00 12/17/16 08:59 11/18/16 10:00 Heparin Sodium (Porcine) (Heparin 5000 units/ml) 5,000 units EVERY 12 HOURS SUBQ 11/16/16 21:00 12/16/16 20:59 11/18/16 20:42 Insulin Aspart (NovoLOG) BEFORE MEALS AND HS SUBQ 11/16/16 21:00 12/16/16 20:59 11/18/16 20:43 Lorazepam (Ativan 2mg/ml 1ml) 1 mg Q4H PRN IV agitation 11/16/16 17:45 11/23/16 17:44 11/18/16 20:45 Metoclopramide HCl (Reglan) 10 mg Q6H PRN IVP severe nausea 11/16/16 17:45 12/16/16 17:44 Morphine Sulfate (Morphine Sulfate) 2 mg Q4H PRN IVP severe Pain (Pain Scale 7-10) 11/16/16 17:45 11/23/16 17:44 11/18/16 16:21 Nitroglycerin (Ntg) 0.4 mg Q5M X 3 DOSES PRN SL Prn Chest Pain 11/16/16 17:45 12/16/16 17:44 Ondansetron HCl (Zofran) 4 mg Q6H PRN IVP Nausea & Vomiting 11/16/16 17:45 12/16/16 17:44 11/18/16 12:35 Polyethylene Glycol (Miralax) 17 gm DAILYPRN PRN ORAL Constipation 11/17/16 09:30 12/17/16 09:29 Promethazine HCl (Phenergan) 25 mg Q8H PRN IV refractory nausea 11/16/16 17:45 12/16/16 17:44 Quetiapine Fumarate (SEROquel) 100 mg QHS ORAL 11/16/16 21:00 12/16/16 20:59 11/18/16 20:40 Temazepam (Restoril) 15 mg HSPRN PRN ORAL Insomnia 11/16/16 17:45 11/23/16 17:44 11/17/16 03:10 SANA CARROLL Nov 18, 2016 22:01
[2016-11-19 04:00] VITALS: BP 124/56
[2016-11-19] MEDS: NovoLOG Insulin Flexpen SUBQ SCH ×3 (06:39→16:49)
[2016-11-19 07:32] LABS: BASOPHILS % (AUTO) 0.7 % (0.0-2.0); EOSINOPHILS % (AUTO) 2.2 % (0.0-3.0); LYMPHOCYTES % (AUTO) 31.8 % (20.0-45.0); MEAN CORPUSCULAR HEMOGLOBIN 33.5 PG (27.0-31.0); MEAN CORPUSCULAR HGB CONC 33.9 G/DL (32.0-36.0); MEAN CORPUSCULAR VOLUME 99 FL (80-99); MEAN PLATELET VOLUME 8.1 FL (6.5-10.1); MONOCYTES % (AUTO) 8.3 % (1.0-10.0); PLATELET COUNT 187 K/UL (150-450); RED CELL DISTRIBUTION WIDTH 13.2 % (11.6-14.8); WHITE BLOOD COUNT 8.1 K/UL (4.8-10.8)
[2016-11-19 08:07] LABS: ANION GAP 10 (5-15); CALCIUM 8.6 mg/dL (8.6-10.2); CARBON DIOXIDE 28 mEQ/L (20-30); CHLORIDE 101 mEQ/L (98-107); CREATININE 0.6 mg/dL (0.5-0.9); GLOMERULAR FILTRATION RATE > 60 mL/min (>60); HEMOLYSIS 22; POTASSIUM 3.8 mEQ/L (3.4-4.9); SODIUM 139 mEQ/L (135-145)
[2016-11-19 08:15] VITALS: BP 149/70
[2016-11-19] MEDS: Esomeprazole sodium 40mg vial IVP SCH (09:00)
[2016-11-19] MEDS: BusPIRone 10mg Tab ORAL SCH (09:33)
[2016-11-19] MEDS: Benztropine 1mg tab ORAL SCH (09:34)
[2016-11-19] MEDS: Heparin 5000 units/ml inj SUBQ SCH (09:35)
--- NOTE | 2016-11-19 11:42 | GI Progress Note ---
Assessment/Plan Problems: (1) Anemia ICD Codes: D64.9 - Anemia, unspecified SNOMED: 491260924 (2) Intractable nausea and vomiting ICD Codes: R11.2 - Nausea with vomiting, unspecified SNOMED: 888284969, 054207096 Qualifiers: Qualified Codes: R11.2 - Nausea with vomiting, unspecified (3) Morbid obesity ICD Codes: E66.01 - Morbid (severe) obesity due to excess calories SNOMED: 148349091, 48834185107714 (4) Anxiety and depression ICD Codes: F41.8 - Other specified anxiety disorders SNOMED: 814380366 (5) GERD (gastroesophageal reflux disease) ICD Codes: K21.9 - Gastro-esophageal reflux disease without esophagitis SNOMED: 743559120 (6) Epigastric abdominal pain ICD Codes: R10.13 - Epigastric pain SNOMED: 03842010 Status: stable Status Narrative Discussed with Dr. Murdock. Assessment/Plan APCT reviewed >> 7 mm nonobstructing right renal calculus. Degenerative changes of the lumbar spine abdominal U/S reviewed >> Cholelithiasis. Mild fatty liver s/p EGD/colonoscopy SUMMARY OF FINDINGS: 1. Gastritis, status post biopsy. 2. One colonic polyp removed, see above for detail. 3. Internal hemorrhoids. RECOMMENDATIONS: adv diet monitor H&H, prn transfusions ppi daily fu bx fu labs repeat colonoscopy x 5 years Subjective Gastrointestinal/Abdominal: Reports: abdominal pain Objective Last 24 Hour Vital Signs Date Time Temp Pulse Resp B/P (MAP) Pulse Ox O2 Delivery O2 Flow Rate FiO2 11/19/16 08:15 98.6 74 20 149/70 92 Room Air 11/19/16 04:00 97.9 77 22 124/56 94 Room Air 11/18/16 20:00 98.0 72 18 129/50 93 Room Air 11/18/16 16:51 98.9 11/18/16 16:00 98.1 70 21 149/61 93 Room Air 11/18/16 11:53 98.9 78 20 159/79 91 Room Air Intake and Output 11/19/16 11/20/16 19:00 07:00 Intake Total 150 ml Balance 150 ml IV Total 150 ml Laboratory Tests Test 11/19/16 06:05 White Blood Count 8.1 K/UL (4.8-10.8) Red Blood Count 3.30 M/UL (4.20-5.40) L Hemoglobin 11.1 G/DL (12.0-16.0) L Hematocrit 32.6 % (37.0-47.0) L Mean Corpuscular Volume 99 FL (80-99) Mean Corpuscular Hemoglobin 33.5 PG (27.0-31.0) H Mean Corpuscular Hemoglobin Concent 33.9 G/DL (32.0-36.0) Red Cell Distribution Width 13.2 % (11.6-14.8) Platelet Count 187 K/UL (150-450) Mean Platelet Volume 8.1 FL (6.5-10.1) Neutrophils (%) (Auto) 57.0 % (45.0-75.0) Lymphocytes (%) (Auto) 31.8 % (20.0-45.0) Monocytes (%) (Auto) 8.3 % (1.0-10.0) Eosinophils (%) (Auto) 2.2 % (0.0-3.0) Basophils (%) (Auto) 0.7 % (0.0-2.0) Sodium Level 139 mEQ/L (135-145) Potassium Level 3.8 mEQ/L (3.4-4.9) Chloride Level 101 mEQ/L (98-107) Carbon Dioxide Level 28 mEQ/L (20-30) Anion Gap 10 (5-15) Blood Urea Nitrogen 11 mg/dL (7-23) Creatinine 0.6 mg/dL (0.5-0.9) Estimat Glomerular Filtration Rate > 60 mL/min (>60) Glucose Level 152 mg/dL (74-106) H Calcium Level 8.6 mg/dL (8.6-10.2) Height (Feet): 5 Height (Inches): 5.00 Weight (Pounds): 307 General Appearance: no apparent distress, alert, obese Cardiovascular: normal rate Respiratory/Chest: normal breath sounds, no respiratory distress Abdominal Exam: normal bowel sounds, non tender, soft Extremities: normal range of motion [place] NMaritza Nov 19, 2016 11:42
[2016-11-19 12:15] VITALS: BP 158/74
[2016-11-19] MEDS: LORazepam Inj 2mg/ml 1ml IV PRN (14:25)
[2016-11-19 16:05] VITALS: BP 157/70
[2016-11-19] MEDS ORDERED: D5 1/2NS 1000ml IV ONE (17:54)
[2016-11-19] MEDS ORDERED: cefTRIAXone 1 GM in D5W 55 ML IVPB SCH (18:00)
--- NOTE | 2016-11-19 22:22 | Pulmonology Progress Note ---
Assessment/Plan Problems: (1) Epigastric abdominal pain (2) GERD (gastroesophageal reflux disease) (3) Morbid obesity Assessment/Plan EGD results noted symptomatic treatment advance diet Subjective ROS Limited/Unobtainable: No Interval Events: improivng Allergies: Coded Allergies: No Known Allergies (Unverified , 08/14/16) Objective Last 24 Hour Vital Signs Date Time Temp Pulse Resp B/P (MAP) Pulse Ox O2 Delivery O2 Flow Rate FiO2 11/19/16 16:05 97.9 76 20 157/70 91 Room Air 11/19/16 12:15 97.7 80 21 158/74 94 Room Air 11/19/16 08:15 98.6 74 20 149/70 92 Room Air 11/19/16 04:00 97.9 77 22 124/56 94 Room Air Intake and Output 11/19/16 11/20/16 19:00 07:00 Intake Total 270 ml Balance 270 ml Intake Oral 120 ml IV Total 150 ml # Voids 7 General Appearance: WD/WN HEENT: normocephalic Respiratory/Chest: chest wall non-tender, lungs clear Breasts: no masses Cardiovascular: normal peripheral pulses Abdomen: normal bowel sounds, soft, non tender Skin: no rash 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, no motor/sensory deficits Laboratory Tests 11/19/16 06:05: White Blood Count 8.1, Red Blood Count 3.30L, Hemoglobin 11.1L, Hematocrit 32.6L , Mean Corpuscular Volume 99, Mean Corpuscular Hemoglobin 33.5H, Mean Corpuscular Hemoglobin Concent 33.9, Red Cell Distribution Width 13.2, Platelet Count 187, Mean Platelet Volume 8.1, Neutrophils (%) (Auto) 57.0, Lymphocytes (% ) (Auto) 31.8, Monocytes (%) (Auto) 8.3, Eosinophils (%) (Auto) 2.2, Basophils ( %) (Auto) 0.7, Sodium Level 139, Potassium Level 3.8, Chloride Level 101, Carbon Dioxide Level 28, Anion Gap 10, Blood Urea Nitrogen 11, Creatinine 0.6, Estimat Glomerular Filtration Rate > 60, Glucose Level 152H, Calcium Level 8.6 SANA CARROLL Nov 19, 2016 22:22
--- NOTE | 2016-11-20 16:03 | Discharge Summary ---
Discharge Summary Hospital Course Date of Admission Nov 16, 2016 at 16:22 Date of Discharge Nov 19, 2016 at 17:55 Admitting Diagnosis abdominal pain HPI Brit Nolan is a 61 year old female who was admitted on Nov 16, 2016 at 16:22 for Abdominal Pain Hospital Course [id number] Discharge Discharge Disposition Patient was discharged to Home (01) Discharge Diagnoses: Steff Baldwin NP Nov 20, 2016 16:03
--- NOTE | 2016-11-21 01:01 | Discharge Summary 2 SIG ---
DATE OF ADMISSION: 11/16/2016 DATE OF DISCHARGE: 11/19/2016 [employer] ELASTIC ATTACHER: Ruperto Murdock M.D. BRIEF HOSPITAL COURSE: The patient is a 61-year-old female with history of anxiety and schizophrenia, presented to ED complaining of abdominal pain located in the epigastric area. The patient was unable to eat anything due to nausea. Pain was severe and gets shortness of breath. Last bowel movement was two days ago. She denied any melena or hematochezia. On evaluation at ED, urine showed pyuria. The patient was nauseous and was given Reglan and Benadryl. Abdominal and pelvic CT showed a 7 mm nonobstructing right renal calculus, otherwise unremarkable. EKG was in normal sinus rhythm. She was admitted for evaluation of abdominal pain and GERD. She was placed on NPO and was given IV hydration. She underwent GI evaluation. Abdominal ultrasound showed cholelithiasis with mild fatty liver. She was given proton-pump inhibitors. Diet was advanced to clear liquids. On 11/18/2016She underwent EGD with colonoscopy with findings of gastritis,internal hemorrhoids and one polyp s/p removal. Diet was eventually advanced. The patient was tolerating diet. Urine showed growth of E. coli and was given ceftriaxone. She was eventually discharged home. FINAL DIAGNOSES: 1. Gastroesophageal reflux disease. 2. Gastritis. 3. Morbid obesity. 4. Anemia. 5. Anxiety and depression. 6. Colonic polyps, status post removal. 7. Internal hemorrhoids. DISPOSITION: The patient was discharged home. DISCHARGE MEDICATIONS: Refer to medication list. FOLLOWUP: The patient was advised to follow up with PMD in a week. ACTIVITY: As tolerated. Oanh Chung M.D. I have been assigned to dictate discharge summary on this account and I was not involved in the patient's management. Steff Baldwin N.P. DR: LINETTE JOB#: [id number] CC: VICKIE
== END 2016-11-19 17:55 | disposition home or self-care (01) | DRG 243 ==
LOC: EMR 14:45 → 3E 16:22 → EDBEDREQ 16:56 → 4W 11-19 08:23
PROC: 0DB78ZX Excision of Stomach, Pylorus, Via Natural or Artificial Opening Endoscopic, Diagnostic (ICD-10-PCS; principal; 2016-11-18 07:07)
PROC: 0DBL8ZZ Excision of Transverse Colon, Via Natural or Artificial Opening Endoscopic (ICD-10-PCS; 2016-11-18 07:07)
DX: K21.9 Gastro-esophageal reflux disease without esophagitis (principal); Z68.44 Body mass index [BMI] 60.0-69.9, adult; N39.0 Urinary tract infection, site not specified; R11.2 Nausea with vomiting, unspecified; E66.01 Morbid (severe) obesity due to excess calories; D64.9 Anemia, unspecified; F20.9 Schizophrenia, unspecified; K29.70 Gastritis, unspecified, without bleeding; F41.8 Other specified anxiety disorders; K63.5 Polyp of colon; K64.8 Other hemorrhoids; N20.0 Calculus of kidney; K80.20 Calculus of gallbladder without cholecystitis without obstruction
CPT/HCPCS: 36415; 74177; 76700; 80048; 80053; 81003; 82150; 82962; 83690; 84484; 84550; 85025; 85610; 85730; 87086; 87181; 93005; 93306; 94003; 94150; 99285; J1815; J2405; J2765